=== PATIENT | female | born 1960 | race American Indian/Alaskan Native ===

== ENCOUNTER 2016-11-16 07:20 | Day surgery (SDC) | payer MEDICAID ==
[2016-10-23 12:25] VITALS: BMI 32.5
[2016-11-16] MEDS ORDERED: Midazolam 2 MG/2 ML VIAL ONE (08:58)
[2016-11-16] MEDS ORDERED: Propofol 10 mg/ml Inj (20 ML) ONE (08:58)
[2016-11-16] MEDS ORDERED: Dexamethasone 4 mg/1 ml ONE (09:01)
[2016-11-16] MEDS ORDERED: ceFAZolin IV 1 gm in Dextrose 1 GM/50 ML BAG IVPB ONE (09:01)
[2016-11-16] MEDS ORDERED: Bupivacaine HCl 0.5% PF (10 ml) Inj ONE ×2 (09:02→09:03)
[2016-11-16] MEDS ORDERED: Lidocaine 1% Inj (20ml) ONE (09:02)
[2016-11-16] MEDS ORDERED: Bacitracin Ointment 30 GM TUBE ONE (09:02)
[2016-11-16] MEDS ORDERED: Triamcinolone Acetonide 40 mg/mL Inj ONE (09:02)
[2016-11-16] MEDS ORDERED: Lactated Ringer's 1,000 ML IV ONE (09:10)
--- NOTE | 2016-11-16 10:48 | PCM.SURG1 ---
Surgeon's Initial Post Op Note - Surgeon's Notes Surgeon: Dr. Smith Complex Care Nurse: Dr. Tatum PGY-2, Dr. Treviño PGY-1 Type of Anesthesia: IV Sedation, Local Anesthesia Administered By: Jayne Mora Pre-Operative Diagnosis: right foot painful bunion Operative Findings: see dictation. 18mm 2.7 synthes screw. 16 cc 1:1 mix 1% lidocaine plain, 0.5%marcaine plain. 2-0,3-0,4-0 vicryl, 4-0 prolene Post-Operative Diagnosis: same Operation Performed: right foot bunionectomy Specimen/Specimens Removed: bone Estimated Blood Loss: EBL {In ML}: 2 Blood Products Given: N/A Drains Used: No Drains Post-Op Condition: Good Date of Surgery/Procedure: 11/16/16 Time of Surgery/Procedure: 09:30
[2016-11-16] MEDS ORDERED: Oxycodone/Acetaminophen 5/325 mg Tab PO PRN ×2 (10:49)
[2016-11-16] MEDS ORDERED: HYDROmorphone 0.5 mg/0.5 ml ISec IVP PRN (10:54)
[2016-11-16] MEDS ORDERED: Lactated Ringer's 1,000 ML IV SCH (11:00)
[2016-11-16 11:26] VITALS: BP 130/70; PULSE 66; RESP 18; TEMP 98; O2SAT 100
--- NOTE | 2016-11-16 12:54 | RAD ---
PROCEDURE: Right Foot Radiographs. HISTORY: s/p right foot surgery COMPARISON: None. FINDINGS: BONES: Patient is status post apparent bunionectomy at the right 1st metatarsal bone the facet with medial distal 1st metatarsal osteotomy appreciated and ostectomy transfixed by a solitary screw. Postop changes seen at the midfoot/forefoot medially with bandage obscuring fine bony and soft-tissue detail. No acute fracture or dislocation identified. A large plantar calcaneal spur is incidentally noted. JOINTS: Normal. SOFT TISSUES: As above. OTHER FINDINGS: None. IMPRESSION: Postop changes are identified at the 1st metatarsal status post bunionectomy.
--- NOTE | 2016-11-17 15:46 | OP ---
PROCEDURE DATE: 11/16/2016 PREOPERATIVE DIAGNOSIS: Right foot hallux valgus deformity. POSTOPERATIVE DIAGNOSIS: Right foot hallux valgus deformity. PROCEDURE: Chevron bunionectomy of right foot with screw fixation. SURGEON: Zane Smith DPM ACTIVITIES COORDINATOR: Kristi Tatum DPM, PGY-2, and Dr. Treviño, PGY-1. COLOR STRAINER: Leila Villarreal MD TYPE OF ANESTHESIA: IV sedation with local. INDICATIONS: The patient is a 56-year-old female with the above diagnoses. The patient has exhausted all conservative treatment at this time and requests surgical intervention. The patient's family consented after careful explanation of risks, benefits, complications, and alternatives of the surgical procedure. No guarantees were given or implied. The patient was brought into the operating room, placed on the operating room table in a supine position. A time-out was performed for identification of the correct patient and procedure. The patient received a total of 15 mL of 1:1 mixture of 1% lidocaine plain and 0.5% Marcaine plain in a Montiel block and a local block type fashion to the right first ray. Once local anesthesia was achieved, the right foot was then prepped and draped in a normal sterile manner. The tourniquet was then inflated to 250 mmHg at the level of the ankle and the procedure began. Attention was then directed to the dorsal aspect of the first metatarsal, right foot, when appropriately 6 cm linear longitudinal incision was made medial and parallel to the tendon of the extensor hallucis longus involving the contralateral deformity. The incision was then deepened to the subcutaneous tissues using sharp and blunt dissection. Care was taken to identify and retract all vital neurovascular structures. All bleeders were cauterized and ligated as necessary. Attention was then directed to the first interspace via the original incision and where the tendon of the extensor hallucis brevis was identified and tenotomized. The conjoint tendons of the adductor hallucis muscle was then identified and transected at its attachment to the base of the proximal phalanx. At this time, the lateral contractor present on the hallux was noted to be reduced. At this time, an inverted L-shaped capsulotomy was performed over the dorsal aspect of the first metatarsophalangeal joint. The periosteal and capsular structures were then carefully dissected free of the osseous attachments and reflected medially and laterally exposing the head of the first metatarsal and to the operative site and cross section from the area was sent to Pathology. Next, utilizing a sagittal bone saw, the dorsal and medial prominences were resected and passed from the operative field. All retractors were then smoothed down with a bone graft. Attention was then redirected to the medial aspect of the first metatarsal head where a through and through V-type osteotomy was created in the metaphyseal region of the bone utilizing an oscillating bone saw. The apex of the osteotomy pointed distally with the arm pointing proximal plantar and proximal dorsal. The dorsal arm was made longer to the accommodate internal fixation. Upon completion of the osteotomy, the capital fragment was distracted and fitted laterally into more correct position and impacted upon the first metatarsal shaft. At this time, 0.45 inch K-wire was driven from dorsal to plantar across the osteotomy site to serve as temporary fixation. Following sequential removal of the K-wire and following AO standard principles and techniques, a 2.7 18-mm cortical screw was inserted into their plates across the osteotomy site with excellent compression noted. Attention was then directed to the remaining medial bone, which was resected utilizing the oscillating bone saw intact from the operative site. Reduction of the deformity was assessed at the time and noted to be excellent. The periosteal and capsular structures was then re-approximated using 2-0 Vicryl. The surgical incision site was then copiously flushed with normal sterile saline. The subcutaneous tissue was then re-approximated using 3-0 Vicryl and the skin was then re-approximated using 4-0 Prolene. A postoperative block consisting of 10 mL of 0.5% Marcaine and 1 mL of Kenalog was injected in a local block fashion. The surgical site was then dressed with bacitracin, Adaptic, 4x4 gauze, Kerlix, Kari and Ezra. POSTOPERATIVE CONDITION: The patient tolerated the anesthesia and procedure well and was transferred to the recovery room. Her vitals signs were stable and neurovascular status intact to the right foot. The patient will remain partial weightbearing in the surgical shoe and will follow up with Dr. Smith in his office. Kristi Tatum DPM [facility] # [id number]
== END 2016-11-16 13:22 | disposition home or self-care (01) ==
LOC: C.SDS 07:20
PROVIDERS: ATTEND Podiatrist Foot & Ankle Surgery
DX: M20.11 Hallux valgus (acquired), right foot (principal); M21.611 Bunion of right foot; M20.21 Hallux rigidus, right foot
CPT/HCPCS: 28291; 73620; 88304; 88311; 97116; 97162; C1713; G8978; G8979; J0690; J2250; J2704; J3010; J7120

== ENCOUNTER 2017-12-13 10:28 | Inpatient (IN) | payer MEDICAID ==
[2017-12-05 09:28] VITALS: BMI 37.5
[2017-12-13 11:53] LABS: BLOOD UREA NITROGEN 13 mg/dL (7-17); CALCIUM 9.3 mg/dl (8.6-10.4); GFR AFRICAN-AMERICAN > 60; GFR NON-AFRICAN AMERICAN > 60
[2017-12-13] MEDS ORDERED: ceFAZolin IV 1 gm in Dextrose 2 GM/100 ML BAG IVPB ONE (13:13)
[2017-12-13] MEDS ORDERED: Midazolam 2 MG/2 ML VIAL ONE (13:32)
[2017-12-13] MEDS ORDERED: Propofol 10 mg/ml Inj (20 ML) ONE ×2 (13:32→14:17)
[2017-12-13] MEDS ORDERED: Rocuronium 10 mg/ml (10 ml) ONE (14:06)
[2017-12-13] MEDS ORDERED: Rocuronium 10 mg/ml (5 ml) ONE (15:24)
[2017-12-13] MEDS ORDERED: ePHEDrine 50 mg/ml Inj ONE (15:29)
[2017-12-13] MEDS ORDERED: HYDROmorphone 0.5 mg/0.5 ml ISec IVP PRN (16:09)
[2017-12-13] MEDS ORDERED: Neostigmine Methylsulfate 3mg/3ml Syringe IV ONE (16:21)
--- NOTE | 2017-12-13 16:47 | PCM.SURG1 ---
Surgeon's Initial Post Op Note - Surgeon's Notes Surgeon: Pablo Child Adolescent Psychiatrist: Kraig PGY4 Type of Anesthesia: General Endo Pre-Operative Diagnosis: Incisional hernia Operative Findings: incisional hernia, extensive adhesions, enterotomy Post-Operative Diagnosis: same Operation Performed: repair of incisional hernia with mesh, DONELL, repair of enterotomy Specimen/Specimens Removed: hernia sac Estimated Blood Loss: EBL {In ML}: 100 Blood Products Given: N/A Drains Used: Anibal Post-Op Condition: Good Date of Surgery/Procedure: 12/13/17 Time of Surgery/Procedure: 16:47
[2017-12-13] MEDS ORDERED: Sodium Chloride 0.9% 1,000 ML IV ONE (19:00)
[2017-12-13] MEDS: Sodium Chloride 0.9% 1,000 ML IV SCH (19:12)
[2017-12-13] MEDS: HYDROmorphone 0.5 mg/0.5 ml ISec IVP PRN (21:05)
[2017-12-14] MEDS: Sodium Chloride 0.9% 1,000 ML IV SCH ×3 (00:18→10:23)
[2017-12-14] MEDS: HYDROmorphone 0.5 mg/0.5 ml ISec IVP PRN ×6 (01:05→21:16)
[2017-12-14 07:32] LABS: BASO # 0.1 K/uL (0.0-0.2); BASO % 0.4 % (0.0-2.0); EOS % 0.1 % (0.0-4.0); HEMOGLOBIN 11.6 g/dL (11.0-16.0); LYMPH # 1.3 K/uL (1.0-4.3); LYMPH % 10.2 % (20.0-40.0); MEAN CELL VOLUME 80.7 fL (81.0-99.0); MEAN CORPUSCULAR HEMOGLOBIN 27.4 pg (27.0-31.0); MEAN PLATELET VOLUME 9.1 fL (7.2-11.7); MONO # 1.1 K/uL (0.0-0.8); MONO % 8.2 % (0.0-10.0); NEUT # 10.6 K/uL (1.8-7.0); NEUT % 81.1 % (50.0-75.0); RBC 4.24 Mil/uL (3.80-5.20); RED CELL DISTRIBUTION WIDTH 14.8 % (11.5-14.5)
[2017-12-14 07:39] LABS: WHITE BLOOD COUNT 13.1 K/uL (4.8-10.8)
[2017-12-14 08:04] VITALS: RESP 20; O2SAT 95
--- NOTE | 2017-12-14 08:04 | OP ---
Copied To: Joel Cornell DO Attending MD: Renea Shah MD PROCEDURE DATE: 12/13/2017 PREOPERATIVE DIAGNOSIS: Incisional hernia. POSTOPERATIVE DIAGNOSIS: Incisional hernia. PROCEDURE: Mesh repair of the incisional hernia. INDICATIONS: This is a 57-year-old female who has developed incisional hernia at the site of the pervious operation. This was symptomatic and repair hernia was indicated. DESCRIPTION OF PROCEDURE: The patient was brought to the OR and underwent general anesthesia with endotracheal intubation. The patient was positioned in supine and prepped and draped in the usual sterile fashion. Time-out was conducted verifying correct patient, procedure, site, and laterality. Antibiotics were administered prior to incision. A vertical midline incision incorporating the old scar was made. The incision was deepened to the fascia, and the hernia sac was identified and dissected free. The peritoneum of the sac was entered and extensive adhesions of the omentum and small bowel were encountered. After extensive dissection of lysis of adhesions, the bowel was freed from the peritoneum. Some enterotomies were encountered. These were closed primarily with a 3-0 Vicryl suture. The fascia was carefully palpated, and additional defects were encountered inferiorly near the umbilicus. Intervening fascial bridges were then cut to create single large defect. The adhesions to the underside of the abdominal wall were lysed and the fascia was assessed. Pieces of mesh 5 x7 inches were to the fascial edges and sutured in place with 0 Prolene and tacked to the abdominal wall. Hemostasis was checked. A closed suction drain was placed in the subcutaneous tissue. The skin was then closed with nilson. The patient tolerated the procedure well and brought to the PACU in stable condition. oJel Cornell DO Renea Shah MD
[2017-12-14 08:14] LABS: BLOOD UREA NITROGEN 11 mg/dL (7-17); GFR AFRICAN-AMERICAN > 60; GFR NON-AFRICAN AMERICAN > 60
--- NOTE | 2017-12-14 10:20 | CP.PCM.PN ---
Subjective - Date & Time of Evaluation Date of Evaluation: 12/14/17 Time of Evaluation: 10:16 - Subjective Subjective: Surgery: Dr. Shah Pt seen and examined. Resting comfortably in bed. Pain controlled. No F/C. No N/ V. +Flatus. No BM. Pt would like to eat. Objective - Vital Signs/Intake and Output Vital Signs (last 24 hours): Temp Pulse Resp BP Pulse Ox 99.1 F 99 H 20 118/80 95 12/14/17 07:00 12/14/17 07:00 12/14/17 07:00 12/14/17 07:00 12/14/17 07:00 Intake and Output: 12/14/17 12/14/17 06:59 18:59 Intake Total 590 Output Total 20 Balance 570 - Medications Medications: Current Medications Bupropion HCl (Wellbutrin Sr 150 Mg) 150 mg PO DAILY STEPHANIE Clonazepam (Klonopin) 1 mg PO HS [facility] Cyclobenzaprine HCl (Flexeril) 5 mg PO DAILY PRN PRN Reason: Pain, moderate (4-7) Enoxaparin Sodium (Lovenox) 40 mg SC DAILY [facility] Ergocalciferol (Drisdol 50,000 Intl Units Cap) 1 cap PO QWK [facility] Hydrochlorothiazide (Hydrodiuril) 25 mg PO DAILY [facility] Hydromorphone HCl (Dilaudid) 0.5 mg IVP Q4H PRN PRN Reason: Pain, moderate (4-7) Last Admin: 12/14/17 05:23 Dose: 0.5 mg Sodium Chloride (Sodium Chloride 0.9%) 1,000 mls @ 140 mls/hr IV .Q7H9M [facility] Last Admin: 12/14/17 02:35 Dose: 140 mls/hr Cefazolin Sodium 500 mg/ (Sodium Chloride) 50 mls @ 100 mls/hr IVPB Q8H STEPHANIE PRN Reason: Protocol Last Admin: 12/14/17 05:29 Dose: 100 mls/hr Lisinopril (Zestril) 40 mg PO DAILY [facility] Olanzapine (Zyprexa) 5 mg PO DAILY [facility] Ondansetron HCl (Zofran Inj) 4 mg IVP Q6 PRN PRN Reason: Nausea/Vomiting Rosuvastatin Calcium (Crestor) 5 mg PO HS [facility] Sennosides (Senokot Tab) 17.2 mg PO HS STEPHANIE - Labs Labs: 12/14/17 07:19 12/14/17 07:19 - Constitutional Appears: Non-toxic, No Acute Distress - Head Exam Head Exam: ATRAUMATIC, NORMOCEPHALIC - Eye Exam Eye Exam: EOMI - ENT Exam ENT Exam: Mucous Membranes Moist - Neck Exam Neck Exam: Full ROM - Respiratory Exam Respiratory Exam: NORMAL BREATHING PATTERN. absent: Accessory Muscle Use, Respiratory Distress - GI/Abdominal Exam GI & Abdominal Exam: Soft. absent: Distended, Firm, Guarding, Rigid, Tenderness Additional comments: midline incision with dressing in place, serosang output from ajit - Extremities Exam Extremities Exam: absent: Calf Tenderness, Pedal Edema - Neurological Exam Neurological Exam: Alert, Awake, Oriented x3 Assessment and Plan - Assessment and Plan (Free Text) Assessment: 57F POD#1 incisional hernia repair with mesh -will start CLD and ADAT -Ajit output: 20cc/12hr, continue to monitor -Encourage OOB, ambulation, and IS use -DVT ppx -d/w attending Zemaitis PGY4
[2017-12-14] MEDS: buPROPion SR 150 MG TABLET PO SCH (10:22)
[2017-12-14] MEDS: Enoxaparin 40 mg Syringe SC SCH (10:23)
[2017-12-14] MEDS: Ergocalciferol 50,000 Intl Units Cap PO SCH ×2 (10:23→11:59)
[2017-12-14] MEDS ORDERED: Sodium Chloride 0.9% 1,000 ML IV SCH (19:45)
[2017-12-15 01:03] VITALS: PULSE 94
[2017-12-15] MEDS: HYDROmorphone 0.5 mg/0.5 ml ISec IVP PRN ×2 (05:23→09:23)
[2017-12-15 07:40] LABS: HEMOGLOBIN 12.2 g/dL (11.0-16.0); MEAN CELL VOLUME 81.1 fL (81.0-99.0); MEAN CORPUSCULAR HEMOGLOBIN 27.4 pg (27.0-31.0); MEAN CORPUSCULAR HGB CONC 33.7 g/dL (33.0-37.0); MEAN PLATELET VOLUME 9.3 fL (7.2-11.7); RBC 4.46 Mil/uL (3.80-5.20); RED CELL DISTRIBUTION WIDTH 14.8 % (11.5-14.5); WHITE BLOOD COUNT 14.2 K/uL (4.8-10.8)
--- NOTE | 2017-12-15 08:02 | CP.PCM.DIS ---
Provider - Provider Date of Admission: 12/13/17 16:48 Attending physician: Renea Shah MD Time Spent in preparation of Discharge (in minutes): 30 Diagnosis - Discharge Diagnosis (1) Incisional hernia Status: Acute Hospital Course - Lab Results Lab Results: Most Recent Lab Values WBC 13.1 K/uL (4.8-10.8) H D 12/14/17 07:19 RBC 4.24 Mil/uL (3.80-5.20) 12/14/17 07:19 Hgb 11.6 g/dL (11.0-16.0) 12/14/17 07:19 Hct 34.2 % (34.0-47.0) 12/14/17 07:19 MCV 80.7 fL (81.0-99.0) L 12/14/17 07:19 MCH 27.4 pg (27.0-31.0) 12/14/17 07:19 MCHC 34.0 g/dL (33.0-37.0) 12/14/17 07:19 RDW 14.8 % (11.5-14.5) H 12/14/17 07:19 Plt Count 195 K/uL (130-400) 12/14/17 07:19 MPV 9.1 fL (7.2-11.7) 12/14/17 07:19 Neut % (Auto) 81.1 % (50.0-75.0) H 12/14/17 07:19 Lymph % (Auto) 10.2 % (20.0-40.0) L 12/14/17 07:19 Whitman % (Auto) 8.2 % (0.0-10.0) 12/14/17 07:19 Eos % (Auto) 0.1 % (0.0-4.0) 12/14/17 07:19 Baso % (Auto) 0.4 % (0.0-2.0) 12/14/17 07:19 Neut # (Auto) 10.6 K/uL (1.8-7.0) H 12/14/17 07:19 Lymph # (Auto) 1.3 K/uL (1.0-4.3) 12/14/17 07:19 Whitman # (Auto) 1.1 K/uL (0.0-0.8) H 12/14/17 07:19 Eos # (Auto) 0.0 K/uL (0.0-0.7) 12/14/17 07:19 Baso # (Auto) 0.1 K/uL (0.0-0.2) 12/14/17 07:19 Sodium 143 mmol/L (132-148) 12/14/17 07:19 Potassium 3.5 mmol/L (3.6-5.2) L 12/14/17 07:19 Chloride 103 mmol/L (98-107) 12/14/17 07:19 Carbon Dioxide 27 mmol/L (22-30) 12/14/17 07:19 Anion Gap 17 (10-20) 12/14/17 07:19 BUN 11 mg/dL (7-17) 12/14/17 07:19 Creatinine 0.7 mg/dL (0.7-1.2) 12/14/17 07:19 Est GFR ( Amer) > 60 12/14/17 07:19 Est GFR (Non-Af Amer) > 60 12/14/17 07:19 Random Glucose 111 mg/dL (65-105) H 12/14/17 07:19 Calcium 8.0 mg/dl (8.6-10.4) L 12/14/17 07:19 - Hospital Course Hospital Course: 57F presented from [facility] for elective incisional hernia repair. Case was complicated by extensive adhesions. Post-op pt was admitted overnight for observation. She is doing well. Pain controlled. Tolerated diet. Mild nausea, no vomiting. No flatus/BM yet, but is ambulating without difficulty. Pt is clear for D/C from surgical standpoint. Discharge Exam - Head Exam Head Exam: ATRAUMATIC, NORMOCEPHALIC - Eye Exam Eye Exam: EOMI - ENT Exam ENT Exam: Mucous Membranes Moist - Neck Exam Neck exam: Full Rom - Respiratory Exam Respiratory Exam: NORMAL BREATHING PATTERN. absent: Accessory Muscle Use, Respiratory Distress - GI/Abdominal Exam GI & Abdominal Exam: Soft. absent: Distended, Firm, Guarding, Rebound, Rigid, Tenderness Additional comments: midline incision w. nlison, C/D/I - Neurological Exam Neurological exam: Alert, Oriented x3 - Psychiatric Exam Psychiatric exam: Normal Affect, Normal Mood Discharge Plan - Discharge Medications Prescriptions: Ketorolac Tromethamine [Toradol] 10 mg PO Q6 #20 tab - Follow Up Plan Condition: GOOD Disposition: HOME/ ROUTINE Patient education suggested?: Yes Instructions: Abdominal Hernia (DC), Open Herniorrhaphy (DC) Additional Instructions: Follow up oc Shah in 2 weeks No heavy lifting >15-20lbs for 4 weeks Diet as tolerated Wear abdominal binder until seen in office Toradol and Tylenol for pain Referrals: Renea Shah MD [Staff Provider] -
[2017-12-15 08:15] LABS: BLOOD UREA NITROGEN 8 mg/dL (7-17); CALCIUM 7.9 mg/dl (8.6-10.4); GFR AFRICAN-AMERICAN > 60; GFR NON-AFRICAN AMERICAN > 60
[2017-12-15 08:20] VITALS: BP 113/76; TEMP 98.7
[2017-12-15] MEDS: Enoxaparin 40 mg Syringe SC SCH (09:24)
[2017-12-15] MEDS: Ergocalciferol 50,000 Intl Units Cap PO SCH (09:24)
[2017-12-15] MEDS: buPROPion SR 150 MG TABLET PO SCH (09:25)
[2017-12-15] MEDS ORDERED: Potassium Chloride 20 mEq ER Tab PO SCH (10:00)
== END 2017-12-15 13:00 | disposition home or self-care (01) | DRG 151 ==
LOC: C.SDS 10:28 → C.9E 16:48 → C.9S 17:18 → C.5S 19:07
PROVIDERS: ADMIT Specialist; ATTEND Specialist
PROC: 0DNU0ZZ Release Omentum, Open Approach (ICD-10-PCS; 2017-12-13)
PROC: 0WUF0JZ Supplement Abdominal Wall with Synthetic Substitute, Open Approach (ICD-10-PCS; principal; 2017-12-13 13:00)
DX: K43.2 Incisional hernia without obstruction or gangrene (principal); K66.0 Peritoneal adhesions (postprocedural) (postinfection)

== ENCOUNTER 2017-12-16 21:29 | Inpatient (IN) | payer MEDICAID ==
[2017-12-16 21:29] VITALS: BMI 37.5
[2017-12-16] MEDS ORDERED: Sodium Chloride 0.9% 1,000 ML IV ONE (22:30)
--- NOTE | 2017-12-16 22:39 | C.PDOC ---
History Of Present Illness 57 y/o female presents to the emergency department complaining of abdominal pain and distention. Patient reports she is s/p hernia repair, she has been passing flatus and has had some diarrhea. Denies any fever or chills. Time Seen by Provider: 12/16/17 22:39 Chief Complaint (Nursing): Abdominal Pain History Per: Patient History/Exam Limitations: no limitations Onset/Duration Of Symptoms: Days Current Symptoms Are (Timing): Still Present Severity: Moderate Pain Scale Rating Of: 4 Radiation Of Pain To:: None Associated Symptoms: Diarrhea, Other (flatulence). denies: Fever, Chills Exacerbating Factors: None Alleviating Factors: None Last Bowel Movement: Today Recent travel outside of the [place]: No Additional History Per: Patient Abnormal Vaginal Bleeding: No Past Medical History Reviewed: Historical Data, Nursing Documentation, Vital Signs Vital Signs: Last Vital Signs Temp 99.3 F 12/17/17 02:39 Pulse 92 H 12/17/17 02:39 Resp 18 12/17/17 02:39 BP 117/77 12/17/17 02:39 Pulse Ox 98 12/17/17 02:39 - Medical History PMH: Anxiety, Colonic Polyps, Depression, HTN, Hypercholesterolemia Denies: Chronic Kidney Disease Surgical History: Hernia Repair - [facility] Procedures REPAIR ABDOMINAL WALL, OPEN APPROACH (09/08/15) RESECTION OF RIGHT LARGE INTESTINE, OPEN APPROACH (09/08/15) Family History: States: No Known Family Hx - Social History Hx Tobacco Use: No Hx Alcohol Use: No Hx Substance Use: No - Immunization History Hx Tetanus Toxoid Vaccination: No Hx Influenza Vaccination: Yes Hx Pneumococcal Vaccination: No Review Of Systems Constitutional: Negative for: Fever, Chills Eyes: Negative for: Vision Change ENT: Negative for: Throat Pain Cardiovascular: Negative for: Chest Pain, Palpitations Respiratory: Negative for: Cough, Shortness of Breath Gastrointestinal: Positive for: Abdominal Pain, Diarrhea, Other (abdominal distention) Musculoskeletal: Negative for: Back Pain Skin: Negative for: Rash Neurological: Negative for: Weakness, Numbness Psych: Negative for: Anxiety Physical Exam - Physical Exam Appears: Non-toxic Skin: Warm, Dry Head: Normacephalic Eye(s): bilateral: Normal Inspection Oral Mucosa: Moist Neck: Trachea Midline, Supple Chest: Symmetrical, No Tenderness Cardiovascular: Rhythm Regular Respiratory: No Rales, No Rhonchi, No Wheezing Gastrointestinal/Abdominal: Soft, No Tenderness, Distention, Other (tympanic percussion; incision site clean and dry) Back: Normal Inspection Extremity: Normal ROM Extremity: Bilateral: Atraumatic Pulses: Left Dorsalis Pedis: Normal, Right Dorsalis Pedis: Normal Neurological/Psych: Oriented x3 Gait: Steady ED Course And Treatment - Laboratory Results Result Diagrams: 12/16/17 22:41 12/16/17 22:41 ECG: Interpreted By Me, Viewed By Me ECG Rhythm: Sinus Rhythm (83), Nonspecific Changes O2 Sat by Pulse Oximetry: 96 (RA) Pulse Ox Interpretation: Normal Progress Note: Blood work, EKG, chest x-ray, and urinalysis ordered. Pepcid, Zofran, and IV fluids administered. pt seen and examined by the sr vice president. aware of ct findings Disposition Discussed With : Renea Shah Comment: accepted the pt on her service and took voer the care at 2:55 AM Doctor Will See Patient In The: ED Counseled Patient/Family Regarding: Studies Performed, Diagnosis - Disposition Disposition: HOSPITALIZED Disposition Time: 22:39 Condition: FAIR Forms: [employer] (Telugu) - POA Present On Arrival: None - Clinical Impression Clinical Impression: Abdominal pain, Diarrhea, SBO (small bowel obstruction) - Scribe Statement The provider has reviewed the documentation as recorded by the Ja Sultana Provider Attestation: All medical record entries made by the Raeibsean were at my direction and personally dictated by me. I have reviewed the chart and agree that the record accurately reflects my personal performance of the history, physical exam, medical decision making, and the department course for this patient. I have also personally directed, reviewed, and agree with the discharge instructions and disposition. Decision To Admit - Pt Status Changed To: Hospital Disposition Of: Inpatient - Admit Certification Admit to Inpatient:: After my assessment, the patient will require hospitalization for at least two midnights. This is because of the severity of symptoms shown, intensity of services needed, and/or the medical risk in this patient being treated as an outpatient. - InPatient: Physician Admission Certification:: After my assessment, the patient will require hospitalization for at least two midnights. This is because of the severity of symptoms shown, intensity of services needed, and/or the medical risk in this patient being treated as an outpatient. - . Bed Request Type: Regular Patient Diagnosis: Abdominal pain, Diarrhea, SBO (small bowel obstruction)
[2017-12-16 22:44] LABS: VENOUS BLOOD GAS BASE EXCESS 5.9 mmol/L (0.0-2.0); VENOUS BLOOD GAS PCO2 39 mmHg (40-60); VENOUS BLOOD GAS PO2 110 mm/Hg (30-55); VENOUS BLOOD PH 7.49 (7.32-7.43)
[2017-12-16 22:46] LABS: BASO % 0.3 % (0.0-2.0); EOS # 0.2 K/uL (0.0-0.7); LYMPH # 1.3 K/uL (1.0-4.3); MEAN CELL VOLUME 80.3 fL (81.0-99.0); MONO # 0.9 K/uL (0.0-0.8); RED CELL DISTRIBUTION WIDTH 14.6 % (11.5-14.5)
[2017-12-16 22:50] LABS: EOS % 2.7 % (0.0-4.0); HEMOGLOBIN 11.8 g/dL (11.0-16.0); LYMPH % 20.7 % (20.0-40.0); MEAN CORPUSCULAR HEMOGLOBIN 27.4 pg (27.0-31.0); MEAN CORPUSCULAR HGB CONC 34.1 g/dL (33.0-37.0); MEAN PLATELET VOLUME 9.3 fL (7.2-11.7); NEUT % 62.3 % (50.0-75.0); NRBC % 0.1 % (0.0-2.0); RBC 4.32 Mil/uL (3.80-5.20)
[2017-12-16 22:52] LABS: WHITE BLOOD COUNT 6.4 K/uL (4.8-10.8)
[2017-12-16 22:55] LABS: INR 1.1; PROTHROMBIN TIME 12.3 SECONDS (9.7-12.2)
[2017-12-16 23:01] LABS: ALT/SGPT 19 U/L (9-52); AST/SGOT 28 U/L (14-36); BLOOD UREA NITROGEN 10 mg/dL (7-17); CALCIUM 8.9 mg/dl (8.6-10.4); GFR AFRICAN-AMERICAN > 60; GFR NON-AFRICAN AMERICAN > 60
[2017-12-17] MEDS ORDERED: Iodixanol 320 MG/ML 100 ML BOTTLE IV ONE (01:03)
--- NOTE | 2017-12-17 03:41 | CP.PCM.HP ---
History of Present Illness - History of Present Illness History of Present Illness: 57F w/ PMHx of HTN, depression, anxiety, incisional hernia, presents to [facility] ED with complaints of abdominal pain. Patient is s/p incisional hernia repain with mesh placement POD 4.Patient states she has not been able to tolerate food since surgery. Reports having nausea and several bouts of non bloody emesis after consuming food. Patient also reports several bouts of diarrhea. At time of examination patient complained of abdominal distension. Currently denies headache/dizziness, chest pain/SOB, dysuria. PMH: as stated above PSHx: R hemicolectomy, umbilical hernia repair, incisional hernia repair All: NKDA Present on Admission - Present on Admission Any Indicators Present on Admission: No Review of Systems - Review of Systems Review of Systems: 12 pt ROS unremarkabale except as stated in HPI Past Patient History - Infectious Disease Hx of Infectious Diseases: None - Past Medical History & Family History Past Medical History?: Yes - Past Social History Smoking Status: Never Smoked - CARDIAC Hx Hypercholesterolemia: Yes Hx Hypertension: Yes - PULMONARY Hx Respiratory Disorders: No - NEUROLOGICAL Hx Neurological Disorder: No - HEENT Hx HEENT Problems: No - RENAL Hx Chronic Kidney Disease: No - ENDOCRINE/METABOLIC Hx Endocrine Disorders: No - HEMATOLOGICAL/ONCOLOGICAL Hx Blood Disorders: No - INTEGUMENTARY Hx Dermatological Problems: No - MUSCULOSKELETAL/RHEUMATOLOGICAL Hx Musculoskeletal Disorders: Yes Hx Back Pain: Yes Hx Falls: No Other/Comment: HX:BUNION RIGHT FOOT (& left) - GASTROINTESTINAL Hx Gastrointestinal Disorders: Yes Hx Bowel Surgery: Yes (HX: COLECTOMY) - GENITOURINARY/GYNECOLOGICAL Hx Genitourinary Disorders: No - PSYCHIATRIC Hx Anxiety: Yes Hx Depression: Yes Hx Substance Use: No - SURGICAL HISTORY Hx Surgeries: Yes Hx Section: Yes Hx Herniorrhaphy: Yes - ANESTHESIA Hx Anesthesia: Yes Hx Anesthesia Reactions: No Hx Malignant Hyperthermia: No Meds Allergies/Adverse Reactions: Allergies Allergy/AdvReac Type Severity Reaction Status Date / Time No Known Allergies Allergy Verified 12/16/17 21:38 Physical Exam - Constitutional Appears: Non-toxic, No Acute Distress - Head Exam Head Exam: NORMOCEPHALIC - Eye Exam Eye Exam: EOMI, Normal appearance - ENT Exam ENT Exam: Mucous Membranes Moist - Respiratory Exam Respiratory Exam: NORMAL BREATHING PATTERN - Cardiovascular Exam Cardiovascular Exam: +S1, +S2 - GI/Abdominal Exam GI & Abdominal Exam: Distended, Soft, Tenderness. absent: Firm, Guarding, Hernia, Rebound, Rigid Additional comments: mild tenderness along incision site Incision site is c/d/i- No purulent drainage or erythematous changes noted - Neurological Exam Neurological exam: Alert, Oriented x3 - Psychiatric Exam Psychiatric exam: Normal Mood - Skin Skin Exam: Dry, Intact, Warm Results - Vital Signs Recent Vital Signs: Last Vital Signs Temp 99.3 F 12/17/17 02:39 Pulse 92 H 12/17/17 02:39 Resp 18 12/17/17 02:39 BP 117/77 12/17/17 02:39 Pulse Ox 96 12/17/17 02:59 - Labs Result Diagrams: 12/20/17 07:52 12/20/17 07:52 Labs: Laboratory Results - last 24 hr 12/16/17 12/16/17 12/16/17 22:40 22:41 22:41 WBC 6.4 D RBC 4.32 Hgb 11.8 Hct 34.7 MCV 80.3 L MCH 27.4 MCHC 34.1 RDW 14.6 H Plt Count 239 MPV 9.3 Neut % (Auto) 62.3 Lymph % (Auto) 20.7 [place] % (Auto) 14.0 H Eos % (Auto) 2.7 Baso % (Auto) 0.3 Neut # (Auto) 4.0 Lymph # (Auto) 1.3 [place] # (Auto) 0.9 H Eos # (Auto) 0.2 Baso # (Auto) 0.0 PT INR APTT pO2 110 H VBG pH 7.49 H VBG pCO2 39 L VBG HCO3 29.6 VBG Total CO2 30.9 H VBG O2 Sat (Calc) 99.2 H VBG Base Excess 5.9 H VBG Potassium 2.9 L Sodium 135.0 136 Chloride 101.0 94 L Glucose 106 H Lactate 1.5 Potassium 3.6 Carbon Dioxide 29 Anion Gap 16 BUN 10 Creatinine 0.8 Est GFR ( Amer) > 60 Est GFR (Non-Af Amer) > 60 Random Glucose 107 H Calcium 8.9 Total Bilirubin 1.1 AST 28 ALT 19 Alkaline Phosphatase 67 Total Protein 8.0 Albumin 4.0 Globulin 4.0 H Albumin/Globulin Ratio 1.0 Lipase Venous Blood Potassium 2.9 L 12/16/17 12/17/17 22:41 00:20 WBC RBC Hgb Hct MCV MCH MCHC RDW Plt Count MPV Neut % (Auto) Lymph % (Auto) [place] % (Auto) Eos % (Auto) Baso % (Auto) Neut # (Auto) Lymph # (Auto) [place] # (Auto) Eos # (Auto) Baso # (Auto) PT 12.3 H INR 1.1 APTT 24 pO2 VBG pH VBG pCO2 VBG HCO3 VBG Total CO2 VBG O2 Sat (Calc) VBG Base Excess VBG Potassium Sodium Chloride Glucose Lactate Potassium Carbon Dioxide Anion Gap BUN Creatinine Est GFR ( Amer) Est GFR (Non-Af Amer) Random Glucose Calcium Total Bilirubin AST ALT Alkaline Phosphatase Total Protein Albumin Globulin Albumin/Globulin Ratio Lipase 35 Venous Blood Potassium Assessment & Plan - Assessment and Plan (Free Text) Assessment: 57F w/ SBO Plan: NPO IVF NGT if abd distension does not improve or pt nauseous/vomits Anti-emetics prn Analgesic prn Encourage ambulation DVT ppx Further recs per Dr. Pablo Roche PGY3
[2017-12-17] MEDS: HYDROmorphone 0.5 mg/0.5 ml ISec IVP PRN ×2 (05:15→14:23)
[2017-12-17] MEDS: Lactated Ringer's 1,000 ML IV SCH ×5 (05:16→23:00)
[2017-12-17 08:20] VITALS: RESP 20
--- NOTE | 2017-12-17 09:32 | CT ---
Date of service: 12/17/2017 PROCEDURE: CT Abdomen and Pelvis with intravenous contrast HISTORY: s/p surgery, abdominal pain, hernia repair COMPARISON: None. TECHNIQUE: Multiple contiguous axial images were performed through the abdomen and pelvis with the use intravenous contrast. Subsequently, sagittal and coronal reformatted images were obtained. Radiation dose: Total exam DLP = 1068 mGy-cm. This CT exam was performed using one or more of the following dose reduction techniques: Automated exposure control, adjustment of the mA and/or kV according to patient size, and/or use of iterative reconstruction technique. FINDINGS: LOWER THORAX: Bibasilar subsegmental atelectasis. LIVER: Unremarkable. No gross lesion or ductal dilatation. GALLBLADDER AND BILE DUCTS: Unremarkable. PANCREAS: Unremarkable. No gross lesion or ductal dilatation. SPLEEN: Unremarkable. ADRENALS: Unremarkable. No mass. KIDNEYS AND URETERS: Unremarkable. No hydronephrosis. No solid mass. VASCULATURE: Unremarkable. No aortic aneurysm. BOWEL: High-grade small-bowel obstruction with a transition point along the anterior abdominal wall deep to the umbilicus. Fluid throughout the colon suggesting a diarrheal state possibly superimposed separate process from the bowel obstruction. Postsurgical changes in the bowel. APPENDIX: No findings to suggest acute appendicitis. PERITONEUM: Small amount of free fluid in the pelvis. LYMPH NODES: Unremarkable. No enlarged lymph nodes. BLADDER: Unremarkable. REPRODUCTIVE: Unremarkable. BONES: Degenerative changes in the spine. OTHER FINDINGS: Skin nilson in the periumbilical region. Trace stranding associated with the prior incision. IMPRESSION: High-grade small-bowel obstruction with a transition point along the anterior abdominal wall deep to the umbilicus. Postsurgical changes in the bowel. Clinical correlation. Fluid throughout the colon suggesting a diarrheal state and possibly superimposed and/or separate process from the bowel obstruction. Clinical correlation. These findings were preliminarily reported at 2:14 a.m. on 12/17/[address] Osmar Sheldon from [facility].
--- NOTE | 2017-12-17 10:28 | RAD ---
Chest x-ray single frontal view History: Postoperative fever. Comparison: 05/17/2016 Findings: Small left pleural effusion with adjacent left basilar consolidation which may represent underlying infiltrate. Venous congestion. Bilateral hilar prominence. Tortuous ectatic aorta. Mild cardiomegaly. Degenerative changes in the spine and shoulders. Impression: Small left pleural effusion with adjacent left basilar consolidation which may represent underlying infiltrate. Venous congestion. Bilateral hilar prominence. Tortuous ectatic aorta. Mild cardiomegaly. Degenerative changes in the spine and shoulders.
[2017-12-17] MEDS: Enoxaparin 100 mg Syringe SC SCH ×2 (10:57→21:46)
[2017-12-18] MEDS: Lactated Ringer's 1,000 ML IV SCH ×4 (03:00→14:42)
[2017-12-18] MEDS: HYDROmorphone 0.5 mg/0.5 ml ISec IVP PRN ×3 (06:51→20:12)
[2017-12-18 08:15] LABS: BASO % 0.4 % (0.0-2.0); EOS # 0.3 K/uL (0.0-0.7); EOS % 3.8 % (0.0-4.0); HEMOGLOBIN 10.7 g/dL (11.0-16.0); LYMPH # 1.6 K/uL (1.0-4.3); LYMPH % 22.4 % (20.0-40.0); MEAN CELL VOLUME 80.9 fL (81.0-99.0); MEAN CORPUSCULAR HEMOGLOBIN 27.8 pg (27.0-31.0); MEAN CORPUSCULAR HGB CONC 34.4 g/dL (33.0-37.0); MEAN PLATELET VOLUME 8.5 fL (7.2-11.7); MONO # 0.8 K/uL (0.0-0.8); MONO % 12.1 % (0.0-10.0); NEUT # 4.3 K/uL (1.8-7.0); NEUT % 61.3 % (50.0-75.0); NRBC % 0.1 % (0.0-2.0); RBC 3.84 Mil/uL (3.80-5.20); RED CELL DISTRIBUTION WIDTH 14.5 % (11.5-14.5)
[2017-12-18 08:48] LABS: BLOOD UREA NITROGEN 8 mg/dL (7-17); CALCIUM 8.1 mg/dl (8.6-10.4); GFR AFRICAN-AMERICAN > 60; GFR NON-AFRICAN AMERICAN > 60
[2017-12-18] MEDS: Enoxaparin 100 mg Syringe SC SCH ×2 (09:32→21:55)
--- NOTE | 2017-12-18 12:31 | CARD ---
APPROVED REPORT Date of service: 12/17/2017 EKG Measurement Heart [id number] <Conclusion> Normal sinus rhythm Normal ECG
[2017-12-18] MEDS ORDERED: Potassium Chloride 20 mEq ER Tab PO STA (12:38)
--- NOTE | 2017-12-18 18:22 | CP.PCM.PN ---
Subjective - Date & Time of Evaluation Date of Evaluation: 12/18/17 Time of Evaluation: 14:00 - Subjective Subjective: General Surgery Progress Note for Dr. Shah Patient was seen and examined today at bedside in no acute distress. Nurse reports no overnight events. Patient admits to BM x5 but no flatus. Complains of bloating, lightheadedness during exertion. Denies CP, SOB, n/v, f/c. Objective - Vital Signs/Intake and Output Vital Signs (last 24 hours): Temp Pulse Resp BP Pulse Ox 98.7 F 89 20 130/75 99 12/18/17 09:32 12/18/17 09:30 12/18/17 07:00 12/18/17 09:30 12/18/17 07:00 Intake and Output: 12/18/17 12/18/17 06:59 18:59 Intake Total 1000 1000 Output Total 2 Balance 1000 998 - Medications Medications: Current Medications Acetaminophen (Tylenol 325mg Tab) 650 mg PO Q6 PRN PRN Reason: Fever >100.4 F Last Admin: 12/18/17 16:41 Dose: 650 mg Enoxaparin Sodium (Lovenox) 100 mg SC Q12 [facility] Last Admin: 12/18/17 09:32 Dose: 100 mg Hydromorphone HCl (Dilaudid) 0.5 mg IVP Q6H PRN PRN Reason: Pain, moderate (4-7) Last Admin: 12/18/17 12:54 Dose: 0.5 mg Potassium Chloride/Dextrose/Sod Cl (Potassium Chl 40 Meq In D5-1/2ns) 1,000 mls @ 100 mls/hr IV .Q10H [facility] Lisinopril (Zestril) 40 mg PO DAILY [facility] Last Admin: 12/18/17 09:32 Dose: 40 mg Ondansetron HCl (Zofran Inj) 4 mg IVP ONCE PRN PRN Reason: nausea/vomiting - Labs Labs: 12/18/17 08:02 12/18/17 08:02 PT 12.3 SECONDS (9.7-12.2) H 12/16/17 22:41 INR 1.1 12/16/17 22:41 APTT 24 SECONDS (21-34) 12/16/17 22:41 - Constitutional Appears: Non-toxic, No Acute Distress - Head Exam Head Exam: ATRAUMATIC, NORMOCEPHALIC - Eye Exam Eye Exam: EOMI, Normal appearance - ENT Exam ENT Exam: Mucous Membranes Moist, Normal Exam - Respiratory Exam Respiratory Exam: NORMAL BREATHING PATTERN. absent: Decreased Breath Sounds, Stridor - Cardiovascular Exam Cardiovascular Exam: +S1, +S2 - GI/Abdominal Exam GI & Abdominal Exam: Soft. absent: Guarding, Rigid, Tenderness Additional comments: abdominal binder in place - Neurological Exam Neurological Exam: Alert, Awake, Oriented x3 - Psychiatric Exam Psychiatric exam: Normal Affect, Normal Mood - Skin Additional comments: incision site c/d/i Assessment and Plan - Assessment and Plan (Free Text) Assessment: 57yoF with SBO Plan: - advanced to CLD, tolerating well, ADAT - monitor temps, Tylenol ordered prn - replete electrolytes as necessary - lower IVF rate to 100mls/hr - anti-emetics - encouraged OOB ambulation - DVT ppx in place - further recs per Dr. Pablo Vasquez PGY1
--- NOTE | 2017-12-18 18:29 | RAD ---
Date of service: 12/18/2017 PROCEDURE: Radiographs of the chest and abdomen (obstructive series) HISTORY: sbo, postop COMPARISON: No prior. TECHNIQUE: AP radiograph of the chest, with upright and supine radiographs of the abdomen. FINDINGS: CHEST: Lungs: The lungs are clear Cardiovascular: Normal size heart. No pulmonary vascular congestion. Pleura: No pleural fluid. No pneumothorax. Other findings: None. ABDOMEN AND PELVIS: Bowel: There is moderate dilatation of gas-filled small bowel loops. There is paucity of gas in the rectum. Free air: None. Bones: Unremarkable. Other findings: None. IMPRESSION: Persistent moderate dilatation gas-filled small bowel loops with paucity of gas in the rectum. Findings could be related to small bowel obstruction or postop ileus.
[2017-12-18] MEDS: Potassium Chl 40 mEq in D5-1/2 1,000 ML IV SCH (18:36)
[2017-12-19] MEDS: HYDROmorphone 0.5 mg/0.5 ml ISec IVP PRN ×2 (03:37→13:50)
[2017-12-19] MEDS: Potassium Chl 40 mEq in D5-1/2 1,000 ML IV SCH ×3 (03:43→20:00)
[2017-12-19 07:29] LABS: BASO % 0.2 % (0.0-2.0); EOS # 0.1 K/uL (0.0-0.7); EOS % 1.4 % (0.0-4.0); HEMOGLOBIN 10.9 g/dL (11.0-16.0); LYMPH # 1.4 K/uL (1.0-4.3); MEAN CELL VOLUME 81.1 fL (81.0-99.0); MEAN CORPUSCULAR HEMOGLOBIN 27.6 pg (27.0-31.0); MEAN PLATELET VOLUME 8.5 fL (7.2-11.7); MONO # 0.9 K/uL (0.0-0.8); MONO % 10.8 % (0.0-10.0); NEUT # 5.9 K/uL (1.8-7.0); NEUT % 70.6 % (50.0-75.0); NRBC % 0.2 % (0.0-2.0); RBC 3.96 Mil/uL (3.80-5.20); RED CELL DISTRIBUTION WIDTH 14.6 % (11.5-14.5); WHITE BLOOD COUNT 8.3 K/uL (4.8-10.8)
[2017-12-19 07:39] LABS: BLOOD UREA NITROGEN 4 mg/dL (7-17); CALCIUM 8.4 mg/dl (8.6-10.4); GFR AFRICAN-AMERICAN > 60; GFR NON-AFRICAN AMERICAN > 60
--- NOTE | 2017-12-19 08:21 | CP.PCM.PN ---
Subjective - Date & Time of Evaluation Date of Evaluation: 12/19/17 Time of Evaluation: 06:50 - Subjective Subjective: Generla surgery progress note for Dr. Shah Patient seen and examined this am at bedside. no acute events overnight per nursing. Patient endorses mild incisional pain but no abdominal pain. She otherwise denies f/c/n/v and has been tolerating her diet well. endorses flatus but no BM. Objective - Vital Signs/Intake and Output Vital Signs (last 24 hours): Temp Pulse Resp BP Pulse Ox 98.7 F 96 H 20 110/73 96 12/18/17 23:50 12/18/17 23:50 12/18/17 23:50 12/18/17 23:50 12/18/17 23:50 Intake and Output: 12/19/17 12/19/17 06:59 18:59 Intake Total 1225 800 Balance 1225 800 - Medications Medications: Current Medications Acetaminophen (Tylenol 325mg Tab) 650 mg PO Q6 PRN PRN Reason: Fever >100.4 F Last Admin: 12/19/17 00:22 Dose: 650 mg Enoxaparin Sodium (Lovenox) 100 mg SC Q12 [facility] Last Admin: 12/18/17 21:55 Dose: 100 mg Hydromorphone HCl (Dilaudid) 0.5 mg IVP Q6H PRN PRN Reason: Pain, moderate (4-7) Last Admin: 12/19/17 03:37 Dose: 0.5 mg Potassium Chloride/Dextrose/Sod Cl (Potassium Chl 40 Meq In D5-1/2ns) 1,000 mls @ 100 mls/hr IV .Q10H [facility] Last Admin: 12/19/17 03:43 Dose: 100 mls/hr Lisinopril (Zestril) 40 mg PO DAILY [facility] Last Admin: 12/18/17 09:32 Dose: 40 mg Ondansetron HCl (Zofran Inj) 4 mg IVP ONCE PRN PRN Reason: nausea/vomiting - Labs Labs: 12/19/17 07:09 12/19/17 07:09 PT 12.3 SECONDS (9.7-12.2) H 12/16/17 22:41 INR 1.1 12/16/17 22:41 APTT 24 SECONDS (21-34) 12/16/17 22:41 - Constitutional Appears: Well, Non-toxic, No Acute Distress - ENT Exam ENT Exam: Mucous Membranes Moist - Respiratory Exam Respiratory Exam: NORMAL BREATHING PATTERN - Cardiovascular Exam Cardiovascular Exam: +S1, +S2 - GI/Abdominal Exam GI & Abdominal Exam: Soft, Tenderness. absent: Distended, Firm, Guarding, Rigid , Rebound Additional comments: mild incisional tenderness - Extremities Exam Extremities Exam: absent: Calf Tenderness, Pedal Edema - Neurological Exam Neurological Exam: Alert, Awake, Oriented x3 - Psychiatric Exam Psychiatric exam: Normal Affect, Normal Mood - Skin Skin Exam: Dry, Intact, Normal Color, Warm Additional comments: incision is clean and intact with minimal drainage. Assessment and Plan - Assessment and Plan (Free Text) Assessment: 57 yr old female s/p incisional hernia repair POD 4, with SBO which is resolving Plan: - pt to be OOBTC and walking as much as possible - will advance to IAD today - encourage IS usage - d/w Dr. Shah all further recs per her Susy Chen, PGY 1
[2017-12-19] MEDS: Enoxaparin 100 mg Syringe SC SCH ×2 (09:35→21:40)
[2017-12-19] MEDS: Oxycodone/Acetaminophen 5/325 mg Tab PO PRN (21:39)
[2017-12-20] MEDS: Oxycodone/Acetaminophen 5/325 mg Tab PO PRN ×3 (04:00→13:18)
[2017-12-20 08:09] LABS: BASO % 0.3 % (0.0-2.0); EOS # 0.2 K/uL (0.0-0.7); EOS % 2.8 % (0.0-4.0); HEMOGLOBIN 10.4 g/dL (11.0-16.0); LYMPH # 1.5 K/uL (1.0-4.3); MEAN CELL VOLUME 80.5 fL (81.0-99.0); MEAN CORPUSCULAR HEMOGLOBIN 27.4 pg (27.0-31.0); MEAN PLATELET VOLUME 8.2 fL (7.2-11.7); MONO # 1.1 K/uL (0.0-0.8); MONO % 13.4 % (0.0-10.0); NEUT # 5.4 K/uL (1.8-7.0); NEUT % 65.5 % (50.0-75.0); NRBC % 0.1 % (0.0-2.0); RBC 3.79 Mil/uL (3.80-5.20); RED CELL DISTRIBUTION WIDTH 14.7 % (11.5-14.5); WHITE BLOOD COUNT 8.3 K/uL (4.8-10.8)
[2017-12-20 08:19] LABS: BLOOD UREA NITROGEN 2 mg/dL (7-17); CALCIUM 8.2 mg/dl (8.6-10.4); GFR AFRICAN-AMERICAN > 60; GFR NON-AFRICAN AMERICAN > 60
[2017-12-20 08:34] VITALS: BP 116/78; PULSE 92; TEMP 97.8; O2SAT 97
[2017-12-20] MEDS: Potassium Chl 40 mEq in D5-1/2 1,000 ML IV SCH ×2 (09:08→11:58)
[2017-12-20] MEDS: Enoxaparin 100 mg Syringe SC SCH (09:15)
--- NOTE | 2017-12-20 11:42 | CP.PCM.DIS ---
Provider - Provider Date of Admission: 12/17/17 02:53 Attending physician: Renea Shah MD Time Spent in preparation of Discharge (in minutes): 30 Hospital Course - Lab Results Lab Results: Micro Results 12/16/17 20:30 Blood-Venous Blood Culture - Preliminary NO GROWTH AFTER 3 DAYS 12/16/17 20:00 Blood-Venous Blood Culture - Preliminary NO GROWTH AFTER 3 DAYS Most Recent Lab Values WBC 8.3 K/uL (4.8-10.8) 12/20/17 07:52 RBC 3.79 Mil/uL (3.80-5.20) L 12/20/17 07:52 Hgb 10.4 g/dL (11.0-16.0) L 12/20/17 07:52 Hct 30.5 % (34.0-47.0) L 12/20/17 07:52 MCV 80.5 fL (81.0-99.0) L 12/20/17 07:52 MCH 27.4 pg (27.0-31.0) 12/20/17 07:52 MCHC 34.0 g/dL (33.0-37.0) 12/20/17 07:52 RDW 14.7 % (11.5-14.5) H 12/20/17 07:52 Plt Count 286 K/uL (130-400) 12/20/17 07:52 MPV 8.2 fL (7.2-11.7) 12/20/17 07:52 Neut % (Auto) 65.5 % (50.0-75.0) 12/20/17 07:52 Lymph % (Auto) 18.0 % (20.0-40.0) L 12/20/17 07:52 [place] % (Auto) 13.4 % (0.0-10.0) H 12/20/17 07:52 Eos % (Auto) 2.8 % (0.0-4.0) 12/20/17 07:52 Baso % (Auto) 0.3 % (0.0-2.0) 12/20/17 07:52 Neut # (Auto) 5.4 K/uL (1.8-7.0) 12/20/17 07:52 Lymph # (Auto) 1.5 K/uL (1.0-4.3) 12/20/17 07:52 [place] # (Auto) 1.1 K/uL (0.0-0.8) H 12/20/17 07:52 Eos # (Auto) 0.2 K/uL (0.0-0.7) 12/20/17 07:52 Baso # (Auto) 0.0 K/uL (0.0-0.2) 12/20/17 07:52 PT 12.3 SECONDS (9.7-12.2) H 12/16/17 22:41 INR 1.1 12/16/17 22:41 APTT 24 SECONDS (21-34) 12/16/17 22:41 pO2 110 mm/Hg (30-55) H 12/16/17 22:40 VBG pH 7.49 (7.32-7.43) H 12/16/17 22:40 VBG pCO2 39 mmHg (40-60) L 12/16/17 22:40 VBG HCO3 29.6 mmol/L 12/16/17 22:40 VBG Total CO2 30.9 mmol/L (22-28) H 12/16/17 22:40 VBG O2 Sat (Calc) 99.2 % (40-65) H 12/16/17 22:40 VBG Base Excess 5.9 mmol/L (0.0-2.0) H 12/16/17 22:40 VBG Potassium 2.9 mmol/L (3.6-5.2) L 12/16/17 22:40 Sodium 135.0 mmol/l (132-148) 12/16/17 22:40 Chloride 101.0 mmol/L (98-107) 12/16/17 22:40 Glucose 106 mg/dl (65-105) H 12/16/17 22:40 Lactate 1.5 mmol/L (0.7-2.1) 12/16/17 22:40 Sodium 140 mmol/L (132-148) 12/20/17 07:52 Potassium 3.5 mmol/L (3.6-5.2) L 12/20/17 07:52 Chloride 104 mmol/L (98-107) 12/20/17 07:52 Carbon Dioxide 29 mmol/L (22-30) 12/20/17 07:52 Anion Gap 11 (10-20) 12/20/17 07:52 BUN 2 mg/dL (7-17) L 12/20/17 07:52 Creatinine 0.7 mg/dL (0.7-1.2) 12/20/17 07:52 Est GFR ( Amer) > 60 12/20/17 07:52 Est GFR (Non-Af Amer) > 60 12/20/17 07:52 Random Glucose 107 mg/dL (65-105) H 12/20/17 07:52 Calcium 8.2 mg/dl (8.6-10.4) L 12/20/17 07:52 Total Bilirubin 1.1 mg/dL (0.2-1.3) 12/16/17 22:41 AST 28 U/L (14-36) 12/16/17 22:41 ALT 19 U/L (9-52) 12/16/17 22:41 Alkaline Phosphatase 67 U/L (38-126) 12/16/17 22:41 Total Protein 8.0 g/dL (6.3-8.3) 12/16/17 22:41 Albumin 4.0 g/dL (3.5-5.0) 12/16/17 22:41 Globulin 4.0 gm/dL (2.2-3.9) H 12/16/17 22:41 Albumin/Globulin Ratio 1.0 (1.0-2.1) 12/16/17 22:41 Lipase 35 U/L (23-300) 12/17/17 00:20 Venous Blood Potassium 2.9 mmol/L (3.6-5.2) L 12/16/17 22:40 - Hospital Course Hospital Course: 12/17: 57F w/ PMHx of HTN, depression, anxiety, incisional hernia, presents to [facility] [place] ED with complaints of abdominal pain. Patient is s/p incisional hernia repain with mesh placement POD 4.Patient states she has not been able to tolerate food since surgery. Reports having nausea and several bouts of non bloody emesis after consuming food. Patient also reports several bouts of diarrhea. At time of examination patient complained of abdominal distension. Currently denies headache/dizziness, chest pain/SOB, dysuria. Therapeutic DVT protocol was commenced. 12/18:Patient was seen and examined today at bedside in no acute distress. Nurse reports no overnight events. Patient admits to BM x5 but no flatus. Complains of bloating, lightheadedness during exertion. Denies CP, SOB, n/v, f/c. 12/19:Patient seen and examined this am at bedside. no acute events overnight per nursing. Patient endorses mild incisional pain but no abdominal pain. She otherwise denies f/c/n/v and has been tolerating her diet well. endorses flatus but no BM. 12/20: Patient reports feeling much better. Admits to passing flatus and having BM. Tolerating diet. Denies headache/dizziness, chest pain/SOB, n/v/, dysuria. Patient to be discharged. To follow up in office in 1 week. Above is a brief summary of patient's hospital stay, for more details please refer to medical records. Discharge Exam - Head Exam Head Exam: ATRAUMATIC, NORMOCEPHALIC - Eye Exam Eye Exam: EOMI, Normal appearance, PERRL - ENT Exam ENT Exam: Mucous Membranes Moist - Respiratory Exam Respiratory Exam: NORMAL BREATHING PATTERN, UNREMARKABLE - Cardiovascular Exam Cardiovascular Exam: +S1, +S2 - GI/Abdominal Exam GI & Abdominal Exam: Soft. absent: Distended, Firm, Guarding, Hernia, Rigid, Tenderness - Neurological Exam Neurological exam: Alert, Oriented x3 - Psychiatric Exam Psychiatric exam: Normal Mood - Skin Skin Exam: Dry, Intact, Warm Discharge Plan - Follow Up Plan Condition: FAIR Disposition: HOME/ ROUTINE Patient education suggested?: Yes Instructions: Heart Healthy Diet, Postoperative Ileus (DC), Small Bowel Obstruction (DC) Additional Instructions: Avoid lifting anything heavier than 20lbs for at least 6 week OK to shower Do no submerge in water Keep surgical incision clean and dry Wear abdominal binder until seen in office Referrals: Renea Shah MD [Staff Provider] -
[2017-12-20] MEDS ORDERED: Potassium Chloride 20 mEq ER Tab PO ONE ×2 (12:48→13:15)
== END 2017-12-20 15:14 | disposition home or self-care (01) | DRG 189 ==
LOC: C.ER 21:29 → C.9E 12-17 02:53 → C.6T 12-17 04:29
PROVIDERS: ADMIT Specialist; ATTEND Specialist
DX: K91.30 Postprocedural intestinal obstruction, unspecified as to partial versus complete (principal); E78.00 Pure hypercholesterolemia, unspecified; I10 Essential (primary) hypertension; Z86.010 Personal history of colon polyps; F32.9 Major depressive disorder, single episode, unspecified; F41.9 Anxiety disorder, unspecified; Y83.8 Other surgical procedures as the cause of abnormal reaction of the patient, or of later complication, without mention of misadventure at the time of the procedure

== ENCOUNTER 2018-01-04 05:12 | Emergency (ER) | payer MEDICAID ==
[2018-01-04 05:13] VITALS: BMI 37.5
[2018-01-04 05:30] VITALS: TEMP 99.6
--- NOTE | 2018-01-04 06:11 | C.PDOC ---
History Of Present Illness 57 y/o female, NAVEED, presents to the ED for evaluation of ventricular hernia repair that is expelling "greenish" fluid since yesterday. The patient's daughter reports the patient went for the hernia repair 12/13/[address] Shah. She had the nislon removed in Dr. Shah's office on 01/01/18 and had no symptoms at the time. The patient denies fever, significant abdominal pain, vomiting, change in appetite or food intolerance, or constipation. AT the time of evaluation, appears comfortable, not in any apparent distress. Time Seen by Provider: 01/04/18 05:55 Chief Complaint (Nursing): Abnormal Skin Integrity History Per: Patient History/Exam Limitations: no limitations Onset/Duration Of Symptoms: Days Current Symptoms Are (Timing): Still Present Recent travel outside of the [place]: No Additional History Per: Family (Daughter) Past Medical History Reviewed: Historical Data, Nursing Documentation, Vital Signs Vital Signs: Last Vital Signs Temp 99.6 F 01/04/18 05:22 Pulse 101 H 01/04/18 05:22 Resp 14 01/04/18 05:22 BP 116/74 01/04/18 05:22 Pulse Ox 98 01/04/18 06:23 - Medical History PMH: Anxiety, Colonic Polyps, Depression, HTN, Hypercholesterolemia Denies: Chronic Kidney Disease Surgical History: Hernia Repair - [facility] Procedures (12/13/17) REPAIR ABDOMINAL WALL, OPEN APPROACH (09/08/15) RESECTION OF RIGHT LARGE INTESTINE, OPEN APPROACH (09/08/15) SUPPLEMENT ABDOMINAL WALL WITH SYNTH SUB, OPEN APPROACH (12/13/17) Family History: States: Unknown Family Hx - Social History Hx Tobacco Use: No Hx Alcohol Use: No Hx Substance Use: No - Immunization History Hx Tetanus Toxoid Vaccination: No Hx Influenza Vaccination: Yes Hx Pneumococcal Vaccination: No Review Of Systems Except As Marked, All Systems Reviewed And Found Negative. Constitutional: Negative for: Fever Gastrointestinal: Negative for: Abdominal Pain, Diarrhea, Constipation Skin: Positive for: Other (greenish fluid draining from ventricular hernia repair site) Physical Exam - Physical Exam Appears: Well, Non-toxic, No Acute Distress Skin: Warm, Other (Ventricular incision from umbilicus down to suprapubic region. ) Head: Normacephalic Eye(s): bilateral: PERRL Nose: No Flaring, No Discharge Oral Mucosa: Moist, No Drooling Neck: Supple Cardiovascular: Rhythm Regular, No Murmur, No JVD Respiratory: No Decreased Breath Sounds, No Accessory Muscle Use, No Rales, No Rhonchi, No Wheezing Gastrointestinal/Abdominal: Bowel Sounds (normal), Soft, Tenderness (well healing scar, no nilson with mild tenderness to along incision sadi that extend from umbilicus down to suprapubic region.), No Distention, No Guarding, No Rebound, Other (Moderate amount of yellowish clear discharge noted upon pressure from insicion site, mild erythema and warmth to touch over insicion line. No flactulance.) Back: No CVA Tenderness Extremity: Normal ROM, No Pedal Edema, No Deformity, No Swelling Extremity: Bilateral: Normal Color And Temperature, Normal ROM Neurological/Psych: Oriented x3, Normal Speech ED Course And Treatment O2 Sat by Pulse Oximetry: 98 (RA) Pulse Ox Interpretation: Normal Progress Note: 0558-- vice president global advertising sales was called for consult. 06, PT WAS EVALUATED BY [employer]. As per assembler surgical garment, was able to draine 20cc clear liquid from wound". Resident discused case diwth who recommend Rx: Keflex orally and discharge with outpt f/u on 01/08/18. NO further work up recommend at present time. On re-eval, pt is afebrile, hemodynamicaly stable,. Non-toxic. Abd: benig, (-) guarding, (-) rebound. Pt advised, stable for discharge wno. Disposition Counseled Patient/Family Regarding: Diagnosis, Need For Followup - Disposition Referrals: Renea Shah MD [Staff Provider] - Disposition: HOME/ ROUTINE Disposition Time: 06:33 Condition: STABLE Additional Instructions: FOLLOW UP WITH ON 01/08/18 FOR RE-EVALUATION. TAKE MEDICATION PRESCRIBED RETURN TO ED AT ANY TIME IF ANY WORSENING OR NEW CHANGES. Prescriptions: Cephalexin [cephalexin] 500 mg PO Q6 #28 cap Instructions: Abdominal Hernia Repair, Open Surgery Forms: [employer] (Icelandic) - Clinical Impression Clinical Impression: Cellulitis, S/P hernia repair - PA / PHOTOGRAPHY SPOTTER / Resident Statement MD/DO has reviewed & agrees with the documentation as recorded. - Scribe Statement The provider has reviewed the documentation as recorded by the Scribe (Jenny Dick) All medical record entries made by the Ja were at my direction and personally dictated by me. I have reviewed the chart and agree that the record accurately reflects my personal performance of the history, physical exam, medical decision making, and the department course for this patient. I have also personally directed, reviewed, and agree with the discharge instructions and disposition.
[2018-01-04 07:06] VITALS: BP 134/71; PULSE 78; RESP 16; O2SAT 97
--- NOTE | 2018-01-04 08:46 | CP.PCM.CON ---
History of Present Illness - History of Present Illness History of Present Illness: 57F PMHx of HTN, depression, anxiety, incisional hernia, presents to ED with complaints of abdominal drainage. Patient reports she was getting up from bed when she noticed fluid coming out from surgical site incision. Wound site was probed and ~20ccs of purulent fluid was expressed. Area was irrigated with normal saline and steril dressings applied. Patient is tolerating diet. Denied any fever/chills. PMH: as stated above PSHx: R hemicolectomy, umbilical hernia repair, incisional hernia repair All: NKDA Review of Systems - Review of Systems Review of Systems: 12 pt ROS negative, except as stated in HPI Past Patient History - Infectious Disease Hx of Infectious Diseases: None - Past Medical History & Family History Past Medical History?: Yes - Past Social History Smoking Status: Never Smoked - CARDIAC Hx Hypercholesterolemia: Yes Hx Hypertension: Yes - PULMONARY Hx Respiratory Disorders: No - NEUROLOGICAL Hx Neurological Disorder: No - HEENT Hx HEENT Problems: No - RENAL Hx Chronic Kidney Disease: No - ENDOCRINE/METABOLIC Hx Endocrine Disorders: No - HEMATOLOGICAL/ONCOLOGICAL Hx Blood Disorders: No - INTEGUMENTARY Hx Dermatological Problems: No - MUSCULOSKELETAL/RHEUMATOLOGICAL Hx Musculoskeletal Disorders: Yes Hx Back Pain: Yes Hx Falls: No Other/Comment: HX:BUNION RIGHT FOOT (& left) - GASTROINTESTINAL Hx Gastrointestinal Disorders: Yes Hx Bowel Surgery: Yes (HX: COLECTOMY) - GENITOURINARY/GYNECOLOGICAL Hx Genitourinary Disorders: No - PSYCHIATRIC Hx Anxiety: Yes Hx Depression: Yes Hx Substance Use: No - SURGICAL HISTORY Hx Surgeries: Yes Hx Section: Yes Hx Herniorrhaphy: Yes - ANESTHESIA Hx Anesthesia: Yes Hx Anesthesia Reactions: No Hx Malignant Hyperthermia: No Meds Home Medications: Home Medication List Medication Instructions Recorded Confirmed Type Cephalexin [cephalexin] 500 mg PO Q6 #28 cap 01/04/18 Rx Allergies/Adverse Reactions: Allergies Allergy/AdvReac Type Severity Reaction Status Date / Time No Known Allergies Allergy Verified 01/04/18 05:30 Physical Exam - Constitutional Appears: No Acute Distress - Head Exam Head Exam: NORMOCEPHALIC - Eye Exam Eye Exam: EOMI, Normal appearance - ENT Exam ENT Exam: Mucous Membranes Moist - Cardiovascular Exam Cardiovascular Exam: +S1, +S2 - GI/Abdominal Exam GI & Abdominal Exam: Soft, Tenderness. absent: Firm, Guarding Additional comments: erythematous region along mid portion of surgical incision - Skin Skin Exam: Dry, Erythema, Intact Results - Vital Signs Recent Vital Signs: Last Vital Signs Temp 99.6 F 01/04/18 05:22 Pulse 78 01/04/18 07:05 Resp 16 01/04/18 07:05 BP 134/71 01/04/18 07:05 Pulse Ox 97 01/04/18 07:05 Assessment & Plan - Assessment and Plan (Free Text) Assessment: 57F s/p incisional hernia repair with soft tissue abdominal collection Plan: -Wound cultures -D/c on -f/u w/ Dr. Shah on Saturday -D/w Dr. Pablo Bautistalatoya PGY3
== END 2018-01-04 07:05 | disposition home or self-care (01) ==
LOC: C.ER 05:12
DX: L03.311 Cellulitis of abdominal wall (principal); Z98.890 Other specified postprocedural states

== ENCOUNTER 2018-01-08 18:02 | Inpatient (IN) | payer MEDICAID ==
[~2018-01-08 18:02] MED LIST: Vancomycin 1 GM 1 GM/250 ML BAG IVPB ONE
[2018-01-08 18:03] VITALS: BMI 37.5
--- NOTE | 2018-01-08 20:01 | C.PDOC ---
History Of Present Illness The patient presents to the ED for evaluation of abdominal pain with some purulent material drainage from her non-closed surgical site for the past week. Patient also reports fever and states she experienced a couple episodes of vomiting. Patient denies diarrhea and urinary symptoms at this time. Time Seen by Provider: 01/08/18 20:00 Chief Complaint (Nursing): GI Problem History Per: Patient History/Exam Limitations: no limitations Onset/Duration Of Symptoms: Days Current Symptoms Are (Timing): Still Present Severity: Moderate Pain Scale Rating Of: 4 Location Of Pain/Discomfort: Diffuse, Periumbilical Radiation Of Pain To:: None Quality Of Discomfort: Dull, Aching, "Pain" Associated Symptoms: Fever, Nausea, Vomiting. denies: Diarrhea, Urinary Symptoms Exacerbating Factors: None Alleviating Factors: None Last Bowel Movement: Today Recent travel outside of the [place]: No Additional History Per: Patient Abnormal Vaginal Bleeding: No Past Medical History Reviewed: Historical Data, Nursing Documentation, Vital Signs Vital Signs: Last Vital Signs Temp 98.9 F 01/08/18 22:56 Pulse 97 H 01/08/18 22:56 Resp 16 01/08/18 22:56 BP 96/62 L 01/08/18 22:56 Pulse Ox 96 01/08/18 22:56 - Medical History PMH: Anxiety, Colonic Polyps, Depression, HTN, Hypercholesterolemia Denies: Chronic Kidney Disease Surgical History: Hernia Repair - [facility] Procedures (12/13/17) REPAIR ABDOMINAL WALL, OPEN APPROACH (09/08/15) RESECTION OF RIGHT LARGE INTESTINE, OPEN APPROACH (09/08/15) SUPPLEMENT ABDOMINAL WALL WITH SYNTH SUB, OPEN APPROACH (12/13/17) Family History: States: Unknown Family Hx - Social History Hx Tobacco Use: No Hx Alcohol Use: No Hx Substance Use: No - Immunization History Hx Tetanus Toxoid Vaccination: No Hx Influenza Vaccination: Yes Hx Pneumococcal Vaccination: No Review Of Systems Constitutional: Positive for: Fever Cardiovascular: Negative for: Chest Pain, Palpitations Respiratory: Negative for: Cough, Shortness of Breath Gastrointestinal: Positive for: Nausea, Vomiting, Abdominal Pain. Negative for : Diarrhea Genitourinary: Negative for: Dysuria, Hematuria, Vaginal Discharge, Vaginal Bleeding Musculoskeletal: Negative for: Back Pain Skin: Negative for: Rash, Lesions, Jaundice, Bruising Neurological: Negative for: Weakness, Numbness Psych: Negative for: Anxiety Physical Exam - Physical Exam Appears: Non-toxic Skin: Warm, Dry Head: Normacephalic Eye(s): bilateral: Normal Inspection Oral Mucosa: Moist Neck: Supple Chest: Symmetrical, No Deformity, No Tenderness Cardiovascular: Rhythm Regular, No Murmur Respiratory: No Rales, No Rhonchi, No Wheezing Gastrointestinal/Abdominal: Soft, Tenderness (diffuse ), No Guarding, No Rebound , Other (3.5-4cm open surface incision to subumbilical midline with some purulent drainage ) Back: No CVA Tenderness Extremity: Normal ROM, Capillary Refill (less than 2 seconds ) Extremity: Bilateral: Atraumatic Pulses: Left Dorsalis Pedis: Normal, Right Dorsalis Pedis: Normal Neurological/Psych: Oriented x3 Gait: Steady ED Course And Treatment - Laboratory Results Result Diagrams: 01/08/18 20:18 01/08/18 20:18 O2 Sat by Pulse Oximetry: 96 Pulse Ox Interpretation: Normal Progress Note: Bloodwork and urinalysis ordered and reviewed. Toradol IVP, Zofran IVP, and IV Fluids given. Disposition Discussed With : Renea Shah Comment: accepted the pt on her service and took over the care at 11:44 PM Doctor Will See Patient In The: ED Counseled Patient/Family Regarding: Studies Performed, Diagnosis - Disposition Disposition: HOSPITALIZED Disposition Time: 20:01 Condition: GUARDED Forms: [facility] (Citizen [place]) - POA Present On Arrival: Poor Glycemic Control - Clinical Impression Clinical Impression: Abdominal pain, Small bowel perforation - Scribe Statement The provider has reviewed the documentation as recorded by the Scribe (Camille Gage) Provider Attestation: All medical record entries made by the Raeibe were at my direction and personally dictated by me. I have reviewed the chart and agree that the record accurately reflects my personal performance of the history, physical exam, medical decision making, and the department course for this patient. I have also personally directed, reviewed, and agree with the discharge instructions and disposition. Decision To Admit - Pt Status Changed To: Hospital Disposition Of: Inpatient - Admit Certification Admit to Inpatient:: After my assessment, the patient will require hospitalization for at least two midnights. This is because of the severity of symptoms shown, intensity of services needed, and/or the medical risk in this patient being treated as an outpatient. - InPatient: Physician Admission Certification:: After my assessment, the patient will require hospitalization for at least two midnights. This is because of the severity of symptoms shown, intensity of services needed, and/or the medical risk in this patient being treated as an outpatient. - . Bed Request Type: Regular Admitting Physician: Renea Shah Patient Diagnosis: Abdominal pain, Small bowel perforation
[2018-01-08] MEDS ORDERED: Sodium Chloride 0.9% 1,000 ML IV ONE ×2 (20:11→20:48)
[2018-01-08] MEDS ORDERED: Sodium Chloride 0.9% 1,000 ML ONE (20:21)
[2018-01-08 20:22] LABS: VENOUS BLOOD GAS BASE EXCESS -0.3 mmol/L (0.0-2.0); VENOUS BLOOD GAS PCO2 32 mmHg (40-60); VENOUS BLOOD GAS PO2 49 mm/Hg (30-55); VENOUS BLOOD PH 7.46 (7.32-7.43)
[2018-01-08 20:22] LABS: BASO # 0.1 K/uL (0.0-0.2); EOS # 0.3 K/uL (0.0-0.7); EOS % 2.6 % (0.0-4.0); HEMOGLOBIN 10.7 g/dL (11.0-16.0); LYMPH # 2.3 K/uL (1.0-4.3); LYMPH % 19.1 % (20.0-40.0); MEAN CELL VOLUME 81.1 fL (81.0-99.0); MEAN CORPUSCULAR HEMOGLOBIN 26.4 pg (27.0-31.0); MEAN CORPUSCULAR HGB CONC 32.6 g/dL (33.0-37.0); MEAN PLATELET VOLUME 7.8 fL (7.2-11.7); MONO # 1.1 K/uL (0.0-0.8); NEUT # 8.4 K/uL (1.8-7.0); NEUT % 68.3 % (50.0-75.0); NRBC % 0.1 % (0.0-2.0); RBC 4.05 Mil/uL (3.80-5.20); RED CELL DISTRIBUTION WIDTH 15.6 % (11.5-14.5); WHITE BLOOD COUNT 12.3 K/uL (4.8-10.8)
[2018-01-08 20:33] LABS: SQUAMOUS EPITHIAL < 1 /hpf (0-5); URINE BACTERIA RARE (<OCC); URINE BILIRUBIN NEGATIVE (NEGATIVE); URINE BLOOD 1+ (NEGATIVE); URINE CLARITY Hazy (Clear); URINE GLUCOSE (UA) NORMAL (Normal); URINE LEUKOCYTE ESTERASE NEG Leu/uL (Negative); URINE PROTEIN NEGATIVE (NEGATIVE)
[2018-01-08 20:35] LABS: URINE COLOR YELLOW (YELLOW)
[2018-01-08 20:38] LABS: INR 1.3; PROTHROMBIN TIME 13.7 SECONDS (9.7-12.2)
[2018-01-08 20:39] LABS: ALB/GLOB RATIO 0.8 (1.0-2.1); ALBUMIN 3.8 g/dL (3.5-5.0); ALT/SGPT 61 U/L (9-52); AST/SGOT 72 U/L (14-36); BLOOD UREA NITROGEN 11 mg/dL (7-17); CALCIUM 9.1 mg/dl (8.6-10.4); GFR NON-AFRICAN AMERICAN > 60; LIPASE 36 U/L (23-300)
[2018-01-08] MEDS ORDERED: Piperacillin/Tazobact 3.375 gm 100 ML IVPB STA (20:47)
[2018-01-08] MEDS ORDERED: Piperacillin/Tazobact 3.375 gm 100 ML IVPB ONE (21:00)
[2018-01-08] MEDS ORDERED: Iohexol 240 (50 ml) ONE (21:48)
[2018-01-08] MEDS ORDERED: Iohexol 350mg/ml 100 ML ONE (22:10)
[2018-01-08] MEDS ORDERED: Vancomycin 1 GM 1 GM/250 ML BAG IVPB SCH (23:45)
[2018-01-09] MEDS ORDERED: Vancomycin 1 gm/NS 200 ml 1 GM/200 ML BAG IVPB STA (00:12)
[2018-01-09] MEDS ORDERED: HYDROmorphone 0.5 mg/0.5 ml ISec IVP PRN (00:31)
--- NOTE | 2018-01-09 00:45 | CP.PCM.HP ---
History of Present Illness - History of Present Illness History of Present Illness: General surgery for Dr. Shah- Shannon Murray, PGY-2 Pt S & E at bedside at 0015 57F w/PSH sig for incision hernia repair (12/13) consulted/admitted for the same. Pt reports that after having nilson removed, she noted drainage from wound, which has been draining ever since. Seen in ED on 01/04 with c/o of abdominal drainage and wound pain, sent home on Keflex with instructions to follow up with Dr. Shah. Was unable to keep appointment due to lack of transportation. Pt reported to ED. Admits to fevers & chills x 1 week, fatigue , malaise, weakness, new onset left lower extremity swelling, one episode of SOB , diarrhea (that started prior to taking Keflex), back pain, dizziness. Denies CP, ISAAC, constipation, dysuria, hematura, hematochezia, other complaints. In ED- febrile, Tmax 101.2. Leukocytosis of 12.3. CT ab w/findings of small bowel leak/perforation w/free oral contrast & gas collection along anterior supra-umbilical abdominal wall -11 x 4.4 cm- source is next to small bowel- colon anastomosis. PMH: HTN, Depression, anxiety, PSH: Incisional hernia repair with mesh (12/13), R hemicolectomy, Umbilical hernia repair All: NKDA SH: Denies ETOH, tobacco, or illicit drug use FH: Non contributory Present on Admission - Present on Admission Any Indicators Present on Admission: No History of DVT/PE: No History of Uncontrolled Diabetes: No Urinary Catheter: No Decubitus Ulcer Present: No Review of Systems - Review of Systems All systems: reviewed and no additional remarkable complaints except - Constitutional Constitutional: Chills, Fever - EENT Eyes: absent: Change in Vision Ears: absent: Dizziness Nose/Mouth/Throat: absent: Sore Throat - Cardiovascular Cardiovascular: absent: Chest Pain - Respiratory Respiratory: absent: Cough - Gastrointestinal Gastrointestinal: Abdominal Pain, Change in Bowel Habits, Diarrhea, Nausea, Vomiting. absent: Hematemesis, Hematochezia - Genitourinary Genitourinary: absent: Hematuria, Pyuria - Musculoskeletal Musculoskeletal: Back Pain. absent: Numbness, Tingling - Integumentary Integumentary: Wounds. absent: Rash - Neurological Neurological: Weakness - Psychiatric Psychiatric: Change in Appetite (decreased) - Endocrine Endocrine: Fatigue Past Patient History - Infectious Disease Hx of Infectious Diseases: None - Past Medical History & Family History Past Medical History?: Yes - Past Social History Smoking Status: Never Smoked - CARDIAC Hx Hypercholesterolemia: Yes Hx Hypertension: Yes - PULMONARY Hx Respiratory Disorders: No - NEUROLOGICAL Hx Neurological Disorder: No - HEENT Hx HEENT Problems: No - RENAL Hx Chronic Kidney Disease: No - ENDOCRINE/METABOLIC Hx Endocrine Disorders: No - HEMATOLOGICAL/ONCOLOGICAL Hx Blood Disorders: No - INTEGUMENTARY Hx Dermatological Problems: No - MUSCULOSKELETAL/RHEUMATOLOGICAL Hx Musculoskeletal Disorders: Yes Hx Back Pain: Yes Hx Falls: No Other/Comment: HX:BUNION RIGHT FOOT (& left) - GASTROINTESTINAL Hx Gastrointestinal Disorders: Yes Hx Bowel Surgery: Yes (HX: COLECTOMY) - GENITOURINARY/GYNECOLOGICAL Hx Genitourinary Disorders: No - PSYCHIATRIC Hx Anxiety: Yes Hx Depression: Yes Hx Substance Use: No - SURGICAL HISTORY Hx Surgeries: Yes Hx Section: Yes (X2) Hx Herniorrhaphy: Yes (12/13/17) - ANESTHESIA Hx Anesthesia: Yes Hx Anesthesia Reactions: No Hx Malignant Hyperthermia: No Meds Allergies/Adverse Reactions: Allergies Allergy/AdvReac Type Severity Reaction Status Date / Time No Known Allergies Allergy Verified 01/08/18 18:41 Physical Exam - Constitutional Appears: Non-toxic, No Acute Distress - Head Exam Head Exam: ATRAUMATIC, NORMAL INSPECTION, NORMOCEPHALIC - Eye Exam Eye Exam: EOMI, Normal appearance - ENT Exam ENT Exam: Mucous Membranes Moist, Normal Exam - Neck Exam Neck exam: Positive for: Full Rom, Normal Inspection - Respiratory Exam Respiratory Exam: Clear to Auscultation Bilateral, NORMAL BREATHING PATTERN. absent: Rhonchi, Wheezes, Respiratory Distress - Cardiovascular Exam Cardiovascular Exam: REGULAR RHYTHM, +S1, +S2 - GI/Abdominal Exam GI & Abdominal Exam: Soft, Tenderness. absent: Distended, Guarding Additional comments: Midline incision with granulation tissue at sides, purulent drainage with palpation, tender - Extremities Exam Extremities exam: Positive for: normal inspection - Neurological Exam Neurological exam: Alert, CN II-XII Intact, Oriented x3 - Psychiatric Exam Psychiatric exam: Normal Affect, Normal Mood - Skin Skin Exam: Normal Color, Warm Results - Vital Signs Recent Vital Signs: Last Vital Signs Temp 98.9 F 01/08/18 22:56 Pulse 97 H 01/08/18 22:56 Resp 16 01/08/18 22:56 BP 96/62 L 01/08/18 22:56 Pulse Ox 96 01/08/18 23:50 - Labs Result Diagrams: 01/08/18 20:18 01/08/18 20:18 Labs: Laboratory Results - last 24 hr 01/08/18 01/08/18 01/08/18 20:13 20:18 20:18 WBC 12.3 H RBC 4.05 Hgb 10.7 L Hct 32.8 L MCV 81.1 MCH 26.4 L MCHC 32.6 L RDW 15.6 H Plt Count 484 H D MPV 7.8 Neut % (Auto) 68.3 Lymph % (Auto) 19.1 L Custer % (Auto) 9.0 Eos % (Auto) 2.6 Baso % (Auto) 1.0 Neut # (Auto) 8.4 H Lymph # (Auto) 2.3 [place] # (Auto) 1.1 H Eos # (Auto) 0.3 Baso # (Auto) 0.1 PT 13.7 H INR 1.3 APTT 28 pO2 49 VBG pH 7.46 H VBG pCO2 32 L VBG HCO3 24.4 VBG Total CO2 23.8 VBG O2 Sat (Calc) 87.4 H VBG Base Excess -0.3 L VBG Potassium 4.5 Sodium 134.0 Chloride 100.0 Glucose 113 H Lactate 1.6 Potassium Carbon Dioxide Anion Gap BUN Creatinine Est GFR ( Amer) Est GFR (Non-Af Amer) Random Glucose Calcium Total Bilirubin AST ALT Alkaline Phosphatase NT-Pro-B Natriuret Pep Total Protein Albumin Globulin Albumin/Globulin Ratio Lipase Venous Blood Potassium 4.5 Urine Color Urine Clarity Urine pH Ur Specific [place] Urine Protein Urine Glucose (UA) Urine Ketones Urine Blood Urine Nitrate Urine Bilirubin Urine Urobilinogen Ur Leukocyte Esterase Urine WBC (Auto) Urine RBC (Auto) Ur Squamous Epith Cells Urine Bacteria 01/08/18 01/08/18 01/08/18 20:18 20:18 21:14 WBC RBC Hgb Hct MCV MCH MCHC RDW Plt Count MPV Neut % (Auto) Lymph % (Auto) [place] % (Auto) Eos % (Auto) Baso % (Auto) Neut # (Auto) Lymph # (Auto) [place] # (Auto) Eos # (Auto) Baso # (Auto) PT INR APTT pO2 VBG pH VBG pCO2 VBG HCO3 VBG Total CO2 VBG O2 Sat (Calc) VBG Base Excess VBG Potassium Sodium 133 Chloride 99 Glucose Lactate Potassium 5.2 Carbon Dioxide 19 L Anion Gap 20 BUN 11 Creatinine 0.8 Est GFR ( Amer) > 60 Est GFR (Non-Af Amer) > 60 Random Glucose 111 H Calcium 9.1 Total Bilirubin 1.3 AST 72 H D ALT 61 H D Alkaline Phosphatase 173 H D NT-Pro-B Natriuret Pep 31.1 Total Protein 8.7 H Albumin 3.8 Globulin 4.9 H Albumin/Globulin Ratio 0.8 L Lipase 36 Venous Blood Potassium Urine Color Yellow Urine Clarity Hazy Urine pH 6.0 Ur Specific [place] 1.016 Urine Protein Negative Urine Glucose (UA) Normal Urine Ketones Negative Urine Blood 1+ H Urine Nitrate Negative Urine Bilirubin Negative Urine Urobilinogen 4.0 H Ur Leukocyte Esterase Neg Urine WBC (Auto) 3 Urine RBC (Auto) 19 H Ur Squamous Epith Cells < 1 Urine Bacteria Rare Assessment & Plan - Assessment and Plan (Free Text) Assessment: 57F w/small bowel leak/perforation s/p incisional hernia repair with mesh Plan: Admit to med-surg VS Q6H Activity as tolerated NPO FU wound cx IV Abx Pain control Wound care PRN OOBTC PT/OT DVT/GI ppx Plan for OR tomorrow FU EKG FU CXR FU Am labs DW Dr. Pablo Murray, PGY-2 - Date & Time Date: 01/09/18 Time: 00:15 Decision To Admit - Pt Status Changed To: Hospital Disposition Of: Inpatient - Admit Certification Admit to Inpatient:: After my assessment, the patient will require hospitalization for at least two midnights. This is because of the severity of symptoms shown, intensity of services needed, and/or the medical risk in this patient being treated as an outpatient. - InPatient: Physician Admission Certification:: small bowel leak requiring operation - . Bed Request Type: Regular Admitting Physician: Renea Shah
[2018-01-09] MEDS: Lactated Ringer's 1,000 ML IV SCH ×4 (02:43→21:02)
[2018-01-09] MEDS: Piperacill/Tazo 3.375gm in Dex 3.375 GM/50 ML BAG IVPB SCH ×4 (05:34→20:14)
--- NOTE | 2018-01-09 10:09 | RAD ---
Date of service: 01/09/2018 PROCEDURE: CHEST RADIOGRAPH, 1 VIEW HISTORY: pre op COMPARISON: 12/16/2017 FINDINGS: LUNGS: No consolidation. There is improved aeration at both lung bases. Linear discoid atelectasis right perihilar left lung base noted. PLEURA: No pneumothorax or pleural fluid seen. CARDIOVASCULAR: Minimal cardiomegaly. Tortuous unfolded thoracic aorta. Minimal pulmonary venous congestion -similar to perhaps slightly decreased since prior exam. OSSEOUS STRUCTURES: Thoracic spondylosis. Bilateral shoulder arthrosis. VISUALIZED UPPER ABDOMEN: Normal. OTHER FINDINGS: None. IMPRESSION: Interval improved aeration at both lung bases. Trace interval discoid atelectasis as above.
--- NOTE | 2018-01-09 11:56 | CT ---
Date of service: 01/08/2018 PROCEDURE: CT Abdomen and Pelvis with contrast HISTORY: Abdominal pain, s/p hernia repair COMPARISON: 12/17/2017. TECHNIQUE: Contrast dose: 100 mL Omnipaque 350 Radiation dose: Total exam DLP = 967.42 mGy-cm. This CT exam was performed using one or more of the following dose reduction techniques: Automated exposure control, adjustment of the mA and/or kV according to patient size, and/or use of iterative reconstruction technique. FINDINGS: LOWER THORAX: Subsegmental atelectasis in the lung bases. LIVER: Unremarkable. No gross lesion or ductal dilatation. GALLBLADDER AND BILE DUCTS: Unremarkable. PANCREAS: Unremarkable. No gross lesion or ductal dilatation. SPLEEN: Unremarkable. ADRENALS: Unremarkable. No mass. KIDNEYS AND URETERS: Unremarkable. No hydronephrosis. No solid mass. VASCULATURE: Unremarkable. No aortic aneurysm. BOWEL: There is a large supraumbilical collection along the anterior abdominal wall collection containing oral contrast and gas measuring approximately 11.0 x 4.4 cm. The source of bowel leak appears to be a small bowel to the right of the collection. The ileotransverse anastomosis appears intact and not associated with the collection. APPENDIX: Normal appendix. PERITONEUM: Unremarkable. No free fluid. No free air. LYMPH NODES: Unremarkable. No enlarged lymph nodes. BLADDER: Unremarkable. REPRODUCTIVE: Unremarkable. BONES: No acute fracture. OTHER FINDINGS: None. IMPRESSION: Small bowel leak/perforation with development of a large supraumbilical collection containing oral contrast and gas measuring approximately 11.0 x 4.4 cm along the anterior abdominal wall. . Source of leak appears to be small bowel to the right of the collection. The ileocolic anastomosis appears intact 10 not associated with the leak. A preliminary report was provided by [employer].
[2018-01-09] MEDS ORDERED: Iohexol 240 (50 ml) ONE (14:56)
[2018-01-09] MEDS ORDERED: Piperacillin/Tazobact 3.375 gm 100 ML IVPB ONE (14:56)
[2018-01-09] MEDS ORDERED: HEPARIN-NS 5,000 UNITS/500 ML 5,000 UNIT/500 ML BAG IV ONE (14:56)
[2018-01-09] MEDS ORDERED: Midazolam 2 MG/2 ML VIAL ONE (15:14)
[2018-01-09] MEDS ORDERED: Propofol 10 mg/ml Inj (20 ML) ONE (15:14)
[2018-01-09] MEDS: Piperacillin/Tazobact 3.375 gm 0 ML IVPB ONE (15:34)
[2018-01-09] MEDS ORDERED: Rocuronium 10 mg/ml (5 ml) ONE ×2 (15:54→17:05)
[2018-01-09] MEDS ORDERED: Phenylephrine 10 mg/ml Inj ONE (15:54)
[2018-01-09] MEDS ORDERED: Succinylcholine Chloride 20 mg/ml Syr (5 ml) IV ONE (15:54)
--- NOTE | 2018-01-09 16:31 | RAD ---
Date of service: 01/09/2018 PROCEDURE: Intraoperative Fluoroscopy. HISTORY: DVT LEFT LEG FINDINGS: Fluoroscopic assistance was provided for IVC filter placement. Please refer to the operative report from [facility]. Total fluoroscopic time (continuous mode) utilized during the procedure 143.6 (seconds). Total exam DLP: 67.55 (mGy).
[2018-01-09] MEDS ORDERED: Thrombin Topical 20,000 Intl Units Spray Kit TOP ONE (16:43)
[2018-01-09] MEDS ORDERED: Neostigmine Methylsulfate 3mg/3ml Syringe IV ONE (17:05)
--- NOTE | 2018-01-09 17:27 | PCM.SURG1 ---
Surgeon's Initial Post Op Note - Surgeon's Notes Surgeon: Dr. Parikh Fish Skinning Machine Feeder: Dr. Wise PGY3 Type of Anesthesia: General Endo Pre-Operative Diagnosis: L leg DVT Operative Findings: see operative report Post-Operative Diagnosis: see operative report Operation Performed: Insertion of IVC filter Specimen/Specimens Removed: none Estimated Blood Loss: EBL {In ML}: 5 Blood Products Given: N/A Drains Used: No Drains Post-Op Condition: Good Date of Surgery/Procedure: 01/09/18 Time of Surgery/Procedure: 15:00
[2018-01-09] MEDS ORDERED: Lactated Ringer's 1,000 ML IV ONE ×2 (17:30→18:00)
--- NOTE | 2018-01-09 17:30 | PCM.SURG1 ---
Surgeon's Initial Post Op Note - Surgeon's Notes Surgeon: Dr. Shah [employer] Internship: Dr. Latif PGY4, Dr. 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 flosealant to fistula Specimen/Specimens Removed: mesh Estimated Blood Loss: EBL {In ML}: 10 Blood Products Given: N/A Drains Used: Bobby ConnorRoberto fuentes Post-Op Condition: Good Date of Surgery/Procedure: 01/09/18 Time of Surgery/Procedure: 17:30
[2018-01-09] MEDS ORDERED: Morphine Monoject Barrel PCA 1mg/ml IV PRN (17:33)
[2018-01-09] MEDS: HYDROmorphone 0.5 mg/0.5 ml ISec IVP PRN ×3 (17:53→18:38)
[2018-01-10 00:22] VITALS: RESP 20
[2018-01-10] MEDS: Piperacill/Tazo 3.375gm in Dex 3.375 GM/50 ML BAG IVPB SCH ×4 (00:57→17:26)
[2018-01-10] MEDS: Lactated Ringer's 1,000 ML IV SCH ×5 (01:39→23:39)
--- NOTE | 2018-01-10 07:45 | OP ---
PROCEDURE DATE: 01/09/2018 The patient is seen at the request of Dr. Shah because of discovery of deep vein thrombosis of left leg when she is going to concurrently undergo surgery for a small valve leak, also mesh infection. PREOPERATIVE DIAGNOSIS: Deep vein thrombosis, left leg. POSTOPERATIVE DIAGNOSIS: Deep vein thrombosis, left leg. PROCEDURE CARRIED OUT: Placement of ____ leak removal filter via right femoral vein with C-arm fluoroscopy and ultrasound-guided puncture, micropuncture technique. SURGEON: Ian Parikh Jr., MD BOOM TENDER: Gera Wise DO ANESTHESIOLOGIST: ____ INDICATIONS: The patient is a middle-aged woman who recently underwent hernia surgery, found to have a leak and has leakage through the anterior abdominal wall. OPERATIVE FINDINGS: Filter was placed via the right femoral vein after filtered to the right in an ectopic location above the level of the renal vein. PROCEDURE: The patient was given general anesthesia. Using ultrasound guidance and micropuncture technique the right common femoral vein was punctured. Under fluoroscopic control, the guidewire was advanced centrally. Using micropuncture technique, this was exchanged with an 0.035 wire. The filter was deployed. Vena cavagram was taken. Unfortunately, the filter was deployed at a higher level than anticipated and was released at the level. and it was slightly tilted to the right, but other than this, just in a higher position. Procedure was then terminated. Pressure was applied to the groin. Operation carried out was placement of leak removal filter via right femoral vein. Ian Parikh Jr., MD
[2018-01-10 08:00] LABS: BASO % 0.3 % (0.0-2.0); EOS # 0.3 K/uL (0.0-0.7); EOS % 2.7 % (0.0-4.0); HEMOGLOBIN 9.4 g/dL (11.0-16.0); LYMPH # 1.2 K/uL (1.0-4.3); LYMPH % 11.6 % (20.0-40.0); MEAN CELL VOLUME 79.2 fL (81.0-99.0); MEAN CORPUSCULAR HEMOGLOBIN 25.9 pg (27.0-31.0); MEAN CORPUSCULAR HGB CONC 32.7 g/dL (33.0-37.0); MEAN PLATELET VOLUME 7.1 fL (7.2-11.7); MONO # 0.8 K/uL (0.0-0.8); MONO % 7.8 % (0.0-10.0); NEUT # 8.3 K/uL (1.8-7.0); NEUT % 77.6 % (50.0-75.0); RBC 3.62 Mil/uL (3.80-5.20); RED CELL DISTRIBUTION WIDTH 15.5 % (11.5-14.5); WHITE BLOOD COUNT 10.7 K/uL (4.8-10.8)
[2018-01-10 08:09] LABS: INR 1.3; PROTHROMBIN TIME 14.2 SECONDS (9.7-12.2)
[2018-01-10 08:11] LABS: ALB/GLOB RATIO 0.8 (1.0-2.1); ALT/SGPT 38 U/L (9-52); AST/SGOT 22 U/L (14-36); BLOOD UREA NITROGEN 4 mg/dL (7-17); CALCIUM 8.2 mg/dl (8.6-10.4); GFR NON-AFRICAN AMERICAN > 60
[2018-01-10] MEDS: Enoxaparin 100 mg Syringe SC SCH ×2 (09:57→21:33)
--- NOTE | 2018-01-10 11:17 | VASCLAB ---
Date of service: 01/09/2018 PROCEDURE: Lower Extremity Venous Duplex Exam. HISTORY: Left leg swelling PRIORS: No previous vascular study. TECHNIQUE: Bilateral common femoral, femoral, popliteal and posterior tibial, peroneal and great saphenous veins were evaluated. Flow was assessed with color Doppler, compressibility, assessment of phasic flow and augmentation response. Report prepared by TARYN Potter FINDINGS: RIGHT: 1. Common Femoral Vein: 1.1. Compressibility - Fully compressible: Thrombus - None : Flow - Phasic: Augmentation -Normal: Reflux - None. 2. Femoral Vein: 2.1. Compressibility - Fully compressible: Thrombus - None : Flow - Phasic: Augmentation -Normal: Reflux - None. 3. Popliteal Vein: 3.1. Compressibility - Fully compressible: Thrombus - None : Flow - Phasic: Augmentation -Normal: Reflux - Mild 1.49s 4. Posterior Tibial Vein: 4.1. Compressibility - Fully compressible: Thrombus - None: Flow - Phasic: Augmentation -Normal: Reflux - None. 5. Peroneal Vein: 5.1. Compressibility - Fully compressible: Thrombus - None: Flow - Phasic: Augmentation -Normal: Reflux - None. 6. Great Saphenous Vein: 6.1. Compressibility - Fully compressible: Thrombus - None: Flow - Phasic: Augmentation - Normal: Reflux - None. LEFT: 1. Common Femoral Vein: 1.1. Compressibility - Fully compressible: Thrombus - None: Flow - Phasic: Augmentation -Normal: Reflux - None. 2. Femoral Vein: 2.1. Compressibility - Partial: Thrombus - Acute: Flow - Reduced : Augmentation -Normal: Reflux - None. 3. Popliteal Vein: 3.1. Compressibility - Partial: Thrombus - Acute : Flow - Reduced : Augmentation -Normal: Reflux - None. 4. Posterior Tibial Vein: 4.1. Compressibility - Incompressible: Thrombus - Acute: Flow - Absent : Augmentation -Normal: Reflux - None. 5. Peroneal Vein: 5.1. Compressibility - Fully compressible: Thrombus - None: Flow - Phasic: Augmentation -Normal: Reflux - None. 6. Great Saphenous Vein: 6.1. Compressibility - Fully compressible: Thrombus - None: Flow - Phasic: Augmentation - Normal: Reflux - None. OTHER FINDINGS: Right: None significant. Left: None significant. IMPRESSION: Right: No evidence of deep or superficial vein thrombosis of the right lower extremity. Normal valve function noted of the right side. Left: 1. Partially occlusive acute deep vein thrombosis, of the left femoral and popliteal veins with mild reduction of the venous return. 2. Totally occluding acute deep vein thrombosis of the left posterior tibial veins, with absent phasic venous flow. Findings were reported to Ita Hogue at 11:40 a.m.
[2018-01-10] MEDS: Ergocalciferol 50,000 Intl Units Cap PO SCH (11:58)
[2018-01-10] MEDS: buPROPion SR 150 MG TABLET PO SCH (11:59)
--- NOTE | 2018-01-10 12:27 | RAD ---
HISTORY: verify right PICC COMPARISON: Chest x-ray performed 01/09/18 TECHNIQUE: Chest, one view. FINDINGS: Right-sided PICC extends expected location of the SVC. Examination limited by habitus. LUNGS: Mild bibasilar atelectasis/infiltrates. Please note that chest x-ray has limited sensitivity for the detection of pulmonary masses. PLEURA: No significant pleural effusion identified. No definite pneumothorax . CARDIOVASCULAR: Borderline cardiomegaly. OSSEOUS STRUCTURES: Degenerative changes. VISUALIZED UPPER ABDOMEN: Unremarkable. OTHER FINDINGS: None. IMPRESSION: Right-sided PICC extends to the expected location of the SVC. Cardiomegaly. Mild bibasilar atelectasis/infiltrates.
[2018-01-11] MEDS: Piperacill/Tazo 3.375gm in Dex 3.375 GM/50 ML BAG IVPB SCH ×5 (00:40→23:52)
[2018-01-11] MEDS: HYDROmorphone 0.5 mg/0.5 ml ISec IVP PRN ×2 (01:53→11:18)
[2018-01-11] MEDS: Lactated Ringer's 1,000 ML IV SCH (05:59)
[2018-01-11] MEDS: Potassium Ch 20mEq in D5-1/2NS 1,000 ML IV SCH ×3 (07:25→16:36)
[2018-01-11 07:54] LABS: BASO # 0.1 K/uL (0.0-0.2); BASO % 0.7 % (0.0-2.0); EOS # 0.3 K/uL (0.0-0.7); EOS % 2.7 % (0.0-4.0); HEMOGLOBIN 7.9 g/dL (11.0-16.0); LYMPH # 1.6 K/uL (1.0-4.3); LYMPH % 14.8 % (20.0-40.0); MEAN CELL VOLUME 79.4 fL (81.0-99.0); MEAN CORPUSCULAR HEMOGLOBIN 26.8 pg (27.0-31.0); MEAN CORPUSCULAR HGB CONC 33.7 g/dL (33.0-37.0); MEAN PLATELET VOLUME 7.3 fL (7.2-11.7); MONO % 9.2 % (0.0-10.0); NEUT # 7.8 K/uL (1.8-7.0); NEUT % 72.6 % (50.0-75.0); RBC 2.96 Mil/uL (3.80-5.20); RED CELL DISTRIBUTION WIDTH 15.8 % (11.5-14.5); WHITE BLOOD COUNT 10.8 K/uL (4.8-10.8)
--- NOTE | 2018-01-11 07:55 | CP.PCM.PN ---
Subjective - Date & Time of Evaluation Date of Evaluation: 01/11/18 Time of Evaluation: 07:00 - Subjective Subjective: General surgery progress note for Dr. Shah-Shannon Murray, PGY-2 Pt S & E at bedside at 0700 Pt resting comfortably in bed. Reports abdominal pain well controlled. Denies N & V, F & C, flatus or BM, chest pain, SOB, leg pain. Ostomy -140cc bilious output since placement JEANNE with 80 cc bilious output/12hrs Objective - Vital Signs/Intake and Output Vital Signs (last 24 hours): Temp Pulse Resp BP Pulse Ox 98.5 F 98 H 20 112/73 96 01/11/18 00:00 01/11/18 00:00 01/11/18 00:00 01/11/18 00:00 01/11/18 00:00 Intake and Output: 01/11/18 01/11/18 06:59 18:59 Intake Total 1150 Output Total 300 Balance 850 - Medications Medications: Current Medications Bupropion HCl (Wellbutrin Sr 150 Mg) 150 mg PO DAILY [facility] Last Admin: 01/10/18 11:59 Dose: 150 mg Clonazepam (Klonopin) 1 mg PO HS [facility] Last Admin: 01/10/18 21:33 Dose: 1 mg Cyclobenzaprine HCl (Flexeril) 5 mg PO DAILY PRN PRN Reason: Pain, moderate (4-7) Enoxaparin Sodium (Lovenox) 100 mg SC Q12 [facility] Last Admin: 01/10/18 21:33 Dose: 100 mg Ergocalciferol (Drisdol 50,000 Intl Units Cap) 1 cap PO QWK [facility] Last Admin: 01/10/18 11:58 Dose: 1 cap Hydrochlorothiazide (Hydrodiuril) 25 mg PO DAILY [facility] Last Admin: 01/10/18 12:01 Dose: Not Given Hydromorphone HCl (Dilaudid) 0.5 mg IVP Q4H PRN PRN Reason: post-op pain Last Admin: 01/11/18 01:53 Dose: 0.5 mg Piperacillin Sod/Tazobactam Sod (Zosyn 3.375 Gm Iv Premix) 3.375 gm in 50 mls @ 200 mls/hr IVPB Q6H STEPHANIE PRN Reason: Protocol Last Admin: 01/11/18 05:56 Dose: 200 mls/hr Potassium Chloride/Dextrose/Sod Cl (Potassium Chl 20 Meq In D5-1/2ns) 1,000 mls @ 150 mls/hr IV .Q6H40M [facility] Last Admin: 01/11/18 07:25 Dose: 150 mls/hr Lisinopril (Zestril) 40 mg PO DAILY [facility] Last Admin: 01/10/18 12:09 Dose: Not Given Olanzapine (Zyprexa) 5 mg PO DAILY [facility] Last Admin: 01/10/18 12:00 Dose: 5 mg Ondansetron HCl (Zofran Inj) 4 mg IVP Q6 PRN PRN Reason: Nausea/Vomiting Pantoprazole Sodium (Protonix Inj) 40 mg IVP DAILY [facility] Last Admin: 01/10/18 09:56 Dose: 40 mg Rosuvastatin Calcium (Crestor) 10 mg PO HS [facility] Last Admin: 01/10/18 21:33 Dose: 10 mg - Labs Labs: 01/10/18 07:43 01/10/18 07:43 PT 14.2 SECONDS (9.7-12.2) H 01/10/18 07:43 INR 1.3 01/10/18 07:43 APTT 26 SECONDS (21-34) 01/10/18 07:43 - Constitutional Appears: Non-toxic, No Acute Distress - Head Exam Head Exam: ATRAUMATIC, NORMAL INSPECTION, NORMOCEPHALIC - Eye Exam Eye Exam: EOMI, Normal appearance - ENT Exam ENT Exam: Mucous Membranes Moist, Normal Exam - Neck Exam Neck Exam: Full ROM, Normal Inspection - Respiratory Exam Respiratory Exam: NORMAL BREATHING PATTERN - Cardiovascular Exam Cardiovascular Exam: REGULAR RHYTHM, +S1, +S2 - GI/Abdominal Exam GI & Abdominal Exam: Soft, Tenderness (mild, over surgical incision sites). absent: Distended, Firm, Guarding Additional comments: ostomy bag in place with dark bilious output JEANNE drain in place with dark bilious output Dressing to midline incision -clean/dry/intact - Extremities Exam Extremities Exam: Normal Inspection, Pedal Edema (mild, bilateral). 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 Pablo Murray, PGY-2
[2018-01-11 08:21] LABS: ALB/GLOB RATIO 0.8 (1.0-2.1); ALBUMIN 2.7 g/dL (3.5-5.0); ALT/SGPT 29 U/L (9-52); AST/SGOT 25 U/L (14-36); BLOOD UREA NITROGEN 5 mg/dL (7-17); CALCIUM 7.9 mg/dl (8.6-10.4); GFR NON-AFRICAN AMERICAN > 60
[2018-01-11] MEDS ORDERED: Potassium Chloride 20 mEq ER Tab PO ONE ×2 (09:00→11:00)
[2018-01-11] MEDS: Enoxaparin 100 mg Syringe SC SCH ×2 (09:15→21:27)
[2018-01-11] MEDS: buPROPion SR 150 MG TABLET PO SCH (09:16)
[2018-01-11] MEDS: oxyCODONE 5 mg Immediate Release Tab PO PRN ×2 (16:35→23:00)
--- NOTE | 2018-01-12 03:43 | OP ---
PROCEDURE DATE: 01/09/2018 SURGEON: Renea Shah MD ROAD HOGGER OPERATOR: Dr. Emmanuel and Dr. Wise. ANESTHESIA: General. PREOPERATIVE DIAGNOSES: Intraabdominal collection and intracutaneous fistula, status post mesh hernia repair. POSTOPERATIVE DIAGNOSES: Intraabdominal collection and intracutaneous fistula, status post mesh hernia repair. PROCEDURE: Removal of abdominal wall mesh and fibrin sealant and drainage to enteric fistula. DESCRIPTION OF OPERATION: With the patient in the supine position under adequate general anesthesia, the abdomen was prepped and draped in the usual sterile manner. The patient had an incision noted to the upper abdomen with some swelling noted to the mid to lower portion of the incision and this incision was reopened in the midline. The fascia was closed beneath the cutaneous incision and this was also incised and beneath the fascia there was a large collection noted of green-colored fluid consistent with enteric content mixed with oral CT scan contrast. This was suctioned and exploration of the area revealed that it was lying above the recently placed Ventrio hernia patch, which was sutured circumferentially beneath the fascial edges. The inner portion of the mesh was elevated and incised allowing entry into the peritoneal cavity and the inner cortex of the surface of the mesh was noted to separate easily from the underlying bowel and with gentle traction on the rim of the mesh the entire mesh was freed from the attachment to the abdominal wall and the entire mesh was removed. When this had been completed, it was noted that the anterior surface of the peritoneal contents was matted with granulation tissue and a single of mucosal fistula opening was identified in the left lower portion of the wound. This had been identified previously on CT scan and was noted to be a long narrow fistula from a bowel loops possibly that had got trapped beneath the edge of the mesh and there was no distal obstruction noted. As the patient's previous surgery was within a month, it was felt that additional attempt at exploration would be difficult and most likely cause additional bowel injury, and therefore an attempt was made to control the fistula with 4 mL of fibrin sealant, which were placed into and around the area of the fistula. When this had been completed, a 1-inch Roberto drain was placed adjacent to the area of the fistula and brought out through a stab incision to the left of the main incision. A Bobby-Connor drain, a perforated flat was also placed in the upper portion of the peritoneal layer and brought out also to the left above the area of the [place] and this was attached to suction. The fascial layer was then re-approximated over the two drains and the peritoneal contents and this was performed with interrupted sutures of 0 Novafil and the skin was closed with nilson. Dry sterile dressings were applied as well as dressing to the various drains. The patient tolerated the procedure well and transferred to the recovery room in stable condition. Estimated blood loss for the procedure was 10 mL. Renea Shah MD
[2018-01-12] MEDS: Piperacill/Tazo 3.375gm in Dex 3.375 GM/50 ML BAG IVPB SCH ×4 (06:11→23:41)
[2018-01-12] MEDS: Potassium Ch 20mEq in D5-1/2NS 1,000 ML IV SCH ×2 (06:11→21:03)
--- NOTE | 2018-01-12 07:43 | CP.PCM.PN ---
Subjective - Date & Time of Evaluation Date of Evaluation: 01/12/18 Time of Evaluation: 07:39 - Subjective Subjective: General surgery progress note for Dr. Shah-Shannon Murray, PGY-2 Pt S & E at bedside at 0700 pt reports ab pain well controlled. Having flatus. Tolerating CLD. Denies N & V , F & C, BM, LE pain. ostomy- 150 cc/24H JEANNE - 200 cc/24H Objective - Vital Signs/Intake and Output Vital Signs (last 24 hours): Temp Pulse Resp BP Pulse Ox 99.5 F 99 H 20 121/82 97 01/11/18 15:00 01/11/18 15:00 01/11/18 15:00 01/11/18 15:00 01/11/18 15:00 Intake and Output: 01/12/18 01/12/18 06:59 18:59 Output Total 160 Balance -160 - Medications Medications: Current Medications Acetaminophen (Tylenol 325mg Tab) 650 mg PO Q6 PRN PRN Reason: Pain, Mild (1-3) Bupropion HCl (Wellbutrin Sr 150 Mg) 150 mg PO DAILY [facility] Last Admin: 01/11/18 09:16 Dose: 150 mg Clonazepam (Klonopin) 1 mg PO HS [facility] Last Admin: 01/11/18 21:27 Dose: 1 mg Cyclobenzaprine HCl (Flexeril) 5 mg PO DAILY PRN PRN Reason: Pain, moderate (4-7) Enoxaparin Sodium (Lovenox) 100 mg SC Q12 [facility] Last Admin: 01/11/18 21:27 Dose: 100 mg Ergocalciferol (Drisdol 50,000 Intl Units Cap) 1 cap PO QWK [facility] Last Admin: 01/10/18 11:58 Dose: 1 cap Hydrochlorothiazide (Hydrodiuril) 25 mg PO DAILY [facility] Last Admin: 01/11/18 10:00 Dose: Not Given Piperacillin Sod/Tazobactam Sod (Zosyn 3.375 Gm Iv Premix) 3.375 gm in 50 mls @ 200 mls/hr IVPB Q6H STEPHANIE PRN Reason: Protocol Last Admin: 01/12/18 06:11 Dose: 200 mls/hr Potassium Chloride/Dextrose/Sod Cl (Potassium Chl 20 Meq In D5-1/2ns) 1,000 mls @ 75 mls/hr IV .[id number] [facility] Last Admin: 01/12/18 06:11 Dose: 75 mls/hr Lisinopril (Zestril) 40 mg PO DAILY [facility] Last Admin: 01/11/18 10:00 Dose: Not Given Olanzapine (Zyprexa) 5 mg PO DAILY [facility] Last Admin: 01/11/18 09:16 Dose: 5 mg Ondansetron HCl (Zofran Inj) 4 mg IVP Q6 PRN PRN Reason: Nausea/Vomiting Oxycodone HCl (Oxycodone Immediate Release Tab) 5 mg PO Q6 PRN PRN Reason: Pain, moderate (4-7) Last Admin: 01/11/18 23:00 Dose: 5 mg Pantoprazole Sodium (Protonix Inj) 40 mg IVP DAILY [facility] Last Admin: 01/11/18 09:15 Dose: 40 mg Rosuvastatin Calcium (Crestor) 10 mg PO HS [facility] Last Admin: 01/11/18 21:27 Dose: 10 mg - Labs Labs: 01/11/18 07:39 01/11/18 07:39 PT 14.2 SECONDS (9.7-12.2) H 01/10/18 07:43 INR 1.3 01/10/18 07:43 APTT 26 SECONDS (21-34) 01/10/18 07:43 - Constitutional Appears: Non-toxic, No Acute Distress - Head Exam Head Exam: ATRAUMATIC, NORMAL INSPECTION, NORMOCEPHALIC - Eye Exam Eye Exam: EOMI, Normal appearance - ENT Exam ENT Exam: Mucous Membranes Moist, Normal Exam - Neck Exam Neck Exam: Full ROM, Normal Inspection - Respiratory Exam Respiratory Exam: NORMAL BREATHING PATTERN - Cardiovascular Exam Cardiovascular Exam: REGULAR RHYTHM, +S1, +S2 - GI/Abdominal Exam GI & Abdominal Exam: Soft, Tenderness (mild, over surgical site). 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 Pablo Murray, PGY-2
[2018-01-12 08:00] LABS: BASO # 0.1 K/uL (0.0-0.2); BASO % 0.7 % (0.0-2.0); EOS # 0.3 K/uL (0.0-0.7); EOS % 3.3 % (0.0-4.0); LYMPH # 1.6 K/uL (1.0-4.3); MEAN CELL VOLUME 79.1 fL (81.0-99.0); MEAN CORPUSCULAR HEMOGLOBIN 26.3 pg (27.0-31.0); MEAN CORPUSCULAR HGB CONC 33.3 g/dL (33.0-37.0); MEAN PLATELET VOLUME 7.3 fL (7.2-11.7); MONO # 0.8 K/uL (0.0-0.8); MONO % 9.4 % (0.0-10.0); NEUT % 68.6 % (50.0-75.0); RBC 3.44 Mil/uL (3.80-5.20); RED CELL DISTRIBUTION WIDTH 15.4 % (11.5-14.5); WHITE BLOOD COUNT 8.7 K/uL (4.8-10.8)
[2018-01-12 08:12] LABS: ALB/GLOB RATIO 0.8 (1.0-2.1); ALBUMIN 2.9 g/dL (3.5-5.0); ALT/SGPT 27 U/L (9-52); AST/SGOT 29 U/L (14-36); BLOOD UREA NITROGEN 2 mg/dL (7-17); CALCIUM 8.3 mg/dl (8.6-10.4); GFR NON-AFRICAN AMERICAN > 60
[2018-01-12] MEDS: buPROPion SR 150 MG TABLET PO SCH (09:28)
[2018-01-12] MEDS: oxyCODONE 5 mg Immediate Release Tab PO PRN ×2 (09:29→17:15)
[2018-01-12] MEDS: Enoxaparin 100 mg Syringe SC SCH ×2 (09:30→21:03)
[2018-01-13] MEDS: oxyCODONE 5 mg Immediate Release Tab PO PRN ×2 (02:26→18:11)
[2018-01-13] MEDS: Piperacill/Tazo 3.375gm in Dex 3.375 GM/50 ML BAG IVPB SCH ×4 (05:25→23:44)
[2018-01-13 07:16] LABS: BASO % 0.6 % (0.0-2.0); EOS # 0.3 K/uL (0.0-0.7); EOS % 3.8 % (0.0-4.0); HEMOGLOBIN 8.8 g/dL (11.0-16.0); LYMPH # 1.5 K/uL (1.0-4.3); LYMPH % 18.3 % (20.0-40.0); MEAN CELL VOLUME 79.7 fL (81.0-99.0); MEAN CORPUSCULAR HGB CONC 33.9 g/dL (33.0-37.0); MEAN PLATELET VOLUME 7.4 fL (7.2-11.7); MONO # 0.7 K/uL (0.0-0.8); MONO % 8.4 % (0.0-10.0); NEUT # 5.7 K/uL (1.8-7.0); NEUT % 68.9 % (50.0-75.0); RBC 3.26 Mil/uL (3.80-5.20); RED CELL DISTRIBUTION WIDTH 15.6 % (11.5-14.5); WHITE BLOOD COUNT 8.2 K/uL (4.8-10.8)
[2018-01-13 08:15] LABS: ALB/GLOB RATIO 0.8 (1.0-2.1); ALBUMIN 2.8 g/dL (3.5-5.0); ALT/SGPT 24 U/L (9-52); AST/SGOT 17 U/L (14-36); BLOOD UREA NITROGEN < 2 mg/dL (7-17); CALCIUM 8.2 mg/dl (8.6-10.4); GFR NON-AFRICAN AMERICAN > 60
--- NOTE | 2018-01-13 08:16 | CP.PCM.PN ---
Subjective - Date & Time of Evaluation Date of Evaluation: 01/13/18 Time of Evaluation: 08:12 - Subjective Subjective: Surgery PT seen and examined. No acute events. Tolerating CLD. Having BM. Dressing changed this AM. Less output. Objective - Vital Signs/Intake and Output Vital Signs (last 24 hours): Temp Pulse Resp BP Pulse Ox 98.2 F 79 20 121/80 98 01/12/18 23:45 01/12/18 23:45 01/12/18 23:45 01/12/18 23:45 01/12/18 23:45 Intake and Output: 01/13/18 01/13/18 06:59 18:59 Intake Total 1778 Output Total 2075 Balance -297 - Medications Medications: Current Medications Acetaminophen (Tylenol 325mg Tab) 650 mg PO Q6 PRN PRN Reason: Pain, Mild (1-3) Bupropion HCl (Wellbutrin Sr 150 Mg) 150 mg PO DAILY [facility] Last Admin: 01/12/18 09:28 Dose: 150 mg Clonazepam (Klonopin) 1 mg PO HS [facility] Last Admin: 01/12/18 21:02 Dose: 1 mg Cyclobenzaprine HCl (Flexeril) 5 mg PO DAILY PRN PRN Reason: Pain, moderate (4-7) Enoxaparin Sodium (Lovenox) 100 mg SC Q12 [facility] Last Admin: 01/12/18 21:03 Dose: 100 mg Ergocalciferol (Drisdol 50,000 Intl Units Cap) 1 cap PO QWK [facility] Last Admin: 01/10/18 11:58 Dose: 1 cap Hydrochlorothiazide (Hydrodiuril) 25 mg PO DAILY [facility] Last Admin: 01/12/18 09:33 Dose: Not Given Piperacillin Sod/Tazobactam Sod (Zosyn 3.375 Gm Iv Premix) 3.375 gm in 50 mls @ 200 mls/hr IVPB Q6H [facility] PRN Reason: Protocol Last Admin: 01/13/18 05:25 Dose: 200 mls/hr Potassium Chloride/Dextrose/Sod Cl (Potassium Chl 20 Meq In D5-1/2ns) 1,000 mls @ 75 mls/hr IV .[id number] [facility] Last Admin: 01/12/18 21:03 Dose: 75 mls/hr Lisinopril (Zestril) 40 mg PO DAILY [facility] Last Admin: 01/12/18 09:34 Dose: Not Given Olanzapine (Zyprexa) 5 mg PO DAILY [facility] Last Admin: 01/12/18 09:28 Dose: 5 mg Ondansetron HCl (Zofran Inj) 4 mg IVP Q6 PRN PRN Reason: Nausea/Vomiting Oxycodone HCl (Oxycodone Immediate Release Tab) 5 mg PO Q6 PRN PRN Reason: Pain, moderate (4-7) Last Admin: 01/13/18 02:26 Dose: 5 mg Pantoprazole Sodium (Protonix Inj) 40 mg IVP DAILY [facility] Last Admin: 01/12/18 09:27 Dose: 40 mg Rosuvastatin Calcium (Crestor) 10 mg PO [facility] Last Admin: 01/12/18 21:02 Dose: 10 mg - Labs Labs: 01/13/18 06:56 01/12/18 07:49 PT 14.2 SECONDS (9.7-12.2) H 01/10/18 07:43 INR 1.3 01/10/18 07:43 APTT 26 SECONDS (21-34) 01/10/18 07:43 - Constitutional Appears: No Acute Distress - Head Exam Head Exam: ATRAUMATIC, NORMAL INSPECTION, NORMOCEPHALIC - Eye Exam Eye Exam: EOMI, Normal appearance, PERRL Pupil Exam: NORMAL ACCOMODATION, PERRL - ENT Exam ENT Exam: Mucous Membranes Moist, Normal Exam - Neck Exam Neck Exam: Full ROM, Normal Inspection. absent: Lymphadenopathy - Respiratory Exam Respiratory Exam: NORMAL BREATHING PATTERN - Cardiovascular Exam Cardiovascular Exam: REGULAR RHYTHM, +S1, +S2. absent: Murmur - GI/Abdominal Exam GI & Abdominal Exam: Soft, Tenderness. absent: Distended, Firm, Rigid Additional comments: Drain serobilious 50cc/24hrs Roberto bilious 75cc/24hrs. 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 Shah
[2018-01-13] MEDS: buPROPion SR 150 MG TABLET PO SCH (09:40)
[2018-01-13] MEDS: Enoxaparin 100 mg Syringe SC SCH ×2 (09:40→21:36)
[2018-01-13] MEDS: Potassium Ch 20mEq in D5-1/2NS 1,000 ML IV SCH (21:35)
[2018-01-14] MEDS: oxyCODONE 5 mg Immediate Release Tab PO PRN ×2 (02:03→09:22)
[2018-01-14] MEDS: Piperacill/Tazo 3.375gm in Dex 3.375 GM/50 ML BAG IVPB SCH ×3 (05:03→17:54)
[2018-01-14 07:46] LABS: BASO # 0.1 K/uL (0.0-0.2); BASO % 1.1 % (0.0-2.0); EOS # 0.2 K/uL (0.0-0.7); EOS % 2.4 % (0.0-4.0); HEMOGLOBIN 9.4 g/dL (11.0-16.0); LYMPH % 21.2 % (20.0-40.0); MEAN CELL VOLUME 79.6 fL (81.0-99.0); MEAN CORPUSCULAR HGB CONC 32.7 g/dL (33.0-37.0); MEAN PLATELET VOLUME 7.6 fL (7.2-11.7); MONO # 0.7 K/uL (0.0-0.8); MONO % 7.8 % (0.0-10.0); NEUT # 6.4 K/uL (1.8-7.0); NEUT % 67.5 % (50.0-75.0); RBC 3.61 Mil/uL (3.80-5.20); RED CELL DISTRIBUTION WIDTH 15.9 % (11.5-14.5); WHITE BLOOD COUNT 9.5 K/uL (4.8-10.8)
[2018-01-14 07:49] LABS: ALB/GLOB RATIO 0.8 (1.0-2.1); ALBUMIN 3.2 g/dL (3.5-5.0); ALT/SGPT 26 U/L (9-52); AST/SGOT 28 U/L (14-36); BLOOD UREA NITROGEN 2 mg/dL (7-17); CALCIUM 8.5 mg/dl (8.6-10.4); GFR NON-AFRICAN AMERICAN > 60
[2018-01-14] MEDS: Pantoprazole 40 mg EC Tab PO SCH (09:21)
[2018-01-14] MEDS: buPROPion SR 150 MG TABLET PO SCH (09:21)
[2018-01-14] MEDS: Enoxaparin 100 mg Syringe SC SCH ×2 (09:22→21:57)
--- NOTE | 2018-01-14 12:44 | CP.PCM.PN ---
Subjective - Date & Time of Evaluation Date of Evaluation: 01/14/18 Time of Evaluation: 12:41 - Subjective Subjective: Surgery Pt seen and examined. No acute events. Dressing changed this AM. Tolerating regular diet. Having BM. Pain controlled. Denies fever, nausea, vomiting. Objective - Vital Signs/Intake and Output Vital Signs (last 24 hours): Temp Pulse Resp BP Pulse Ox 98.5 F 88 20 119/82 100 01/14/18 07:00 01/14/18 07:00 01/14/18 07:00 01/14/18 07:00 01/14/18 07:00 Intake and Output: 01/14/18 01/14/18 06:59 18:59 Intake Total 1750 Output Total 710 Balance 1040 - Medications Medications: Current Medications Acetaminophen (Tylenol 325mg Tab) 650 mg PO Q6 PRN PRN Reason: Pain, Mild (1-3) Bupropion HCl (Wellbutrin Sr 150 Mg) 150 mg PO DAILY [facility] Last Admin: 01/14/18 09:21 Dose: 150 mg Clonazepam (Klonopin) 1 mg PO HS [facility] Last Admin: 01/13/18 21:35 Dose: 1 mg Cyclobenzaprine HCl (Flexeril) 5 mg PO DAILY PRN PRN Reason: Pain, moderate (4-7) Last Admin: 01/13/18 09:44 Dose: 5 mg Enoxaparin Sodium (Lovenox) 100 mg SC Q12 [facility] Last Admin: 01/14/18 09:22 Dose: 100 mg Ergocalciferol (Drisdol 50,000 Intl Units Cap) 1 cap PO QWK [facility] Last Admin: 01/10/18 11:58 Dose: 1 cap Hydrochlorothiazide (Hydrodiuril) 25 mg PO DAILY [facility] Last Admin: 01/14/18 09:21 Dose: 25 mg Piperacillin Sod/Tazobactam Sod (Zosyn 3.375 Gm Iv Premix) 3.375 gm in 50 mls @ 200 mls/hr IVPB Q6H [facility] PRN Reason: Protocol Last Admin: 01/14/18 11:40 Dose: 200 mls/hr Potassium Chloride/Dextrose/Sod Cl (Potassium Chl 20 Meq In D5-1/2ns) 1,000 mls @ 75 mls/hr IV .[id number] [facility] Last Admin: 01/13/18 21:35 Dose: 75 mls/hr Lisinopril (Zestril) 40 mg PO DAILY [facility] Last Admin: 01/14/18 09:22 Dose: Not Given Olanzapine (Zyprexa) 5 mg PO DAILY [facility] Last Admin: 01/14/18 09:21 Dose: 5 mg Ondansetron HCl (Zofran Inj) 4 mg IVP Q6 PRN PRN Reason: Nausea/Vomiting Oxycodone HCl (Oxycodone Immediate Release Tab) 5 mg PO Q6 PRN PRN Reason: Pain, moderate (4-7) Last Admin: 01/14/18 09:22 Dose: 5 mg Pantoprazole Sodium (Protonix Ec Tab) 40 mg PO DAILY [facility] Last Admin: 01/14/18 09:21 Dose: 40 mg Rosuvastatin Calcium (Crestor) 10 mg PO HS [facility] Last Admin: 01/13/18 21:34 Dose: 10 mg - Labs Labs: 01/14/18 07:25 01/14/18 07:25 PT 14.2 SECONDS (9.7-12.2) H 01/10/18 07:43 INR 1.3 01/10/18 07:43 APTT 26 SECONDS (21-34) 01/10/18 07:43 - Constitutional Appears: No Acute Distress - Head Exam Head Exam: ATRAUMATIC, NORMAL INSPECTION, NORMOCEPHALIC - Eye Exam Eye Exam: EOMI, Normal appearance, PERRL Pupil Exam: NORMAL ACCOMODATION, PERRL - ENT Exam ENT Exam: Mucous Membranes Moist - Neck Exam Neck Exam: Full ROM, Normal Inspection. absent: Lymphadenopathy - Respiratory Exam Respiratory Exam: NORMAL BREATHING PATTERN - Cardiovascular Exam Cardiovascular Exam: REGULAR RHYTHM - GI/Abdominal Exam GI & Abdominal Exam: Soft, Tenderness. absent: Distended, Firm, Guarding, Rigid Additional comments: Drain in place serobilious output 50cc/24hrs. [place] bilious output 50cc/ 24hrs. [place] has nilson. Draining biliuous fluids. Dressing saturated. - Extremities Exam Extremities Exam: Full ROM, Normal Capillary Refill, Normal Inspection. absent : Joint Swelling, Pedal Edema - Back Exam Back Exam: NORMAL INSPECTION - Neurological Exam Neurological Exam: Alert, Awake, CN II-XII Intact, Normal Gait, Oriented x3 - Psychiatric Exam Psychiatric exam: Normal Affect, Normal Mood - Skin Skin Exam: Erythema, Warm. 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
[2018-01-14] MEDS: Potassium Ch 20mEq in D5-1/2NS 1,000 ML IV SCH (13:00)
[2018-01-15] MEDS: oxyCODONE 5 mg Immediate Release Tab PO PRN ×2 (05:26→14:31)
[2018-01-15] MEDS: Pantoprazole 40 mg EC Tab PO SCH (09:05)
[2018-01-15] MEDS: Enoxaparin 100 mg Syringe SC SCH ×2 (09:06→21:44)
[2018-01-15] MEDS: buPROPion SR 150 MG TABLET PO SCH (09:07)
--- NOTE | 2018-01-15 17:24 | CP.PCM.PN ---
Subjective - Date & Time of Evaluation Date of Evaluation: 01/15/18 Time of Evaluation: 17:21 - Subjective Subjective: Gen Surg: Dr Shah Pt S&E. NAEO. Resting comfortably. Tolerating diet. Having BMs. Still having increased drainage from midline. Denies f/c, n/v, sob or chest pain. Objective - Vital Signs/Intake and Output Vital Signs (last 24 hours): Temp Pulse Resp BP Pulse Ox 99.0 F 97 H 20 110/71 97 01/15/18 15:00 01/15/18 15:00 01/15/18 15:00 01/15/18 15:00 01/15/18 15:00 Intake and Output: 01/15/18 01/15/18 06:59 18:59 Intake Total 1350 Output Total 110 Balance 1240 - Medications Medications: Current Medications Acetaminophen (Tylenol 325mg Tab) 650 mg PO Q6 PRN PRN Reason: Pain, Mild (1-3) Bupropion HCl (Wellbutrin Sr 150 Mg) 150 mg PO DAILY [facility] Last Admin: 01/15/18 09:07 Dose: 150 mg Clonazepam (Klonopin) 1 mg PO HS [facility] Last Admin: 01/14/18 21:55 Dose: 1 mg Cyclobenzaprine HCl (Flexeril) 5 mg PO DAILY PRN PRN Reason: Pain, moderate (4-7) Last Admin: 01/15/18 09:07 Dose: 5 mg Enoxaparin Sodium (Lovenox) 100 mg SC Q12 [facility] Last Admin: 01/15/18 09:06 Dose: 100 mg Ergocalciferol (Drisdol 50,000 Intl Units Cap) 1 cap PO QWK [facility] Last Admin: 01/10/18 11:58 Dose: 1 cap Hydrochlorothiazide (Hydrodiuril) 25 mg PO DAILY [facility] Last Admin: 01/15/18 10:00 Dose: Not Given Lisinopril (Zestril) 40 mg PO DAILY [facility] Last Admin: 01/15/18 09:06 Dose: Not Given Olanzapine (Zyprexa) 5 mg PO DAILY [facility] Last Admin: 01/15/18 09:07 Dose: 5 mg Ondansetron HCl (Zofran Inj) 4 mg IVP Q6 PRN PRN Reason: Nausea/Vomiting Pantoprazole Sodium (Protonix Ec Tab) 40 mg PO DAILY [facility] Last Admin: 01/15/18 09:05 Dose: 40 mg Rosuvastatin Calcium (Crestor) 10 mg PO HS [facility] Last Admin: 01/14/18 21:56 Dose: 10 mg - Labs Labs: 01/14/18 07:25 01/14/18 07:25 PT 14.2 SECONDS (9.7-12.2) H 01/10/18 07:43 INR 1.3 01/10/18 07:43 APTT 26 SECONDS (21-34) 01/10/18 07:43 - Constitutional Appears: Non-toxic, No Acute Distress - Head Exam Head Exam: NORMAL INSPECTION - ENT Exam ENT Exam: Mucous Membranes Moist - Respiratory Exam Respiratory Exam: absent: Respiratory Distress - Cardiovascular Exam Cardiovascular Exam: REGULAR RHYTHM. absent: Tachycardia - GI/Abdominal Exam GI & Abdominal Exam: Soft. absent: Distended, Tenderness Additional comments: midline with enteric drainage Assessment and Plan - Assessment and Plan (Free Text) Assessment: 58F s/p explantation of mesh, now with ECF Plan: will place wound vac today will begin d/c planning moving forward d/w Dr Pablo Latif, PGY4
[2018-01-16] MEDS: buPROPion SR 150 MG TABLET PO SCH (10:02)
[2018-01-16] MEDS: Enoxaparin 100 mg Syringe SC SCH ×2 (10:02→21:11)
--- NOTE | 2018-01-17 09:02 | CP.PCM.PN ---
Subjective - Date & Time of Evaluation Date of Evaluation: 01/17/18 Time of Evaluation: 08:59 - Subjective Subjective: General Surgery: Dr Shah Pt S&E. [place]. Tolerating diet. Having BMs. Wound vac developed leaking yesterday. Replaced this AM. Still with enteric drainage. Objective - Vital Signs/Intake and Output Vital Signs (last 24 hours): Temp Pulse Resp BP Pulse Ox 98.4 F 86 20 108/75 97 01/17/18 07:26 01/17/18 07:26 01/17/18 07:26 01/17/18 07:26 01/17/18 07:26 Intake and Output: 01/17/18 01/17/18 06:59 18:59 Intake Total 250 Output Total 315 Balance -65 - Medications Medications: Current Medications Acetaminophen (Tylenol 325mg Tab) 650 mg PO Q6 PRN PRN Reason: Pain, Mild (1-3) Last Admin: 01/16/18 07:09 Dose: 650 mg Bupropion HCl (Wellbutrin Sr 150 Mg) 150 mg PO DAILY [facility] Last Admin: 01/16/18 10:02 Dose: 150 mg Clonazepam (Klonopin) 1 mg PO HS [facility] Last Admin: 01/16/18 21:12 Dose: 1 mg Cyclobenzaprine HCl (Flexeril) 5 mg PO DAILY PRN PRN Reason: Pain, moderate (4-7) Last Admin: 01/16/18 19:02 Dose: 5 mg Enoxaparin Sodium (Lovenox) 100 mg SC Q12 [facility] Last Admin: 01/16/18 21:11 Dose: 100 mg Ergocalciferol (Drisdol 50,000 Intl Units Cap) 1 cap PO QWK [facility] Last Admin: 01/10/18 11:58 Dose: 1 cap Hydrochlorothiazide (Hydrodiuril) 25 mg PO DAILY [facility] Last Admin: 01/16/18 10:02 Dose: Not Given Lisinopril (Zestril) 40 mg PO DAILY [facility] Last Admin: 01/16/18 10:03 Dose: Not Given Olanzapine (Zyprexa) 5 mg PO DAILY [facility] Last Admin: 01/16/18 10:02 Dose: 5 mg Rosuvastatin Calcium (Crestor) 10 mg PO HS [facility] Last Admin: 01/16/18 21:12 Dose: 10 mg - Labs Labs: 01/14/18 07:25 01/14/18 07:25 PT 14.2 SECONDS (9.7-12.2) H 01/10/18 07:43 INR 1.3 01/10/18 07:43 APTT 26 SECONDS (21-34) 01/10/18 07:43 - Constitutional Appears: Non-toxic, No Acute Distress - ENT Exam ENT Exam: Mucous Membranes Moist - Respiratory Exam Respiratory Exam: absent: Respiratory Distress - Cardiovascular Exam Cardiovascular Exam: REGULAR RHYTHM. absent: Tachycardia - GI/Abdominal Exam GI & Abdominal Exam: Soft. absent: Distended, Firm, Tenderness Additional comments: midline incision with wound vac in place, no longer leaking, enteric output - Extremities Exam Extremities Exam: absent: Pedal Edema - Neurological Exam Neurological Exam: Alert, Awake, Oriented x3 - Psychiatric Exam Psychiatric exam: Normal Affect, Normal Mood - Skin Skin Exam: Normal Color, Warm Assessment and Plan - Assessment and Plan (Free Text) Assessment: 58M s/p explantation of mesh now with ECF Plan: cont reg diet wound vac to abdomen will monitor lytes and fluid balance no plan for D/C until fistula adequately controlled d/w Dr Pablo Latif, PGY4
--- NOTE | 2018-01-17 09:04 | CP.PCM.PN ---
Subjective - Date & Time of Evaluation Date of Evaluation: 01/16/18 Time of Evaluation: 06:35 - Subjective Subjective: Patient seen and examined. No acute events over night. Tolerating diet. 130cc/ 24hr bilious output into JEANNE drain. Objective - Vital Signs/Intake and Output Vital Signs (last 24 hours): Temp Pulse Resp BP Pulse Ox 98.4 F 86 20 108/75 97 01/17/18 07:26 01/17/18 07:26 01/17/18 07:26 01/17/18 07:26 01/17/18 07:26 Intake and Output: 01/17/18 01/17/18 06:59 18:59 Intake Total 250 Output Total 315 Balance -65 - Medications Medications: Current Medications Acetaminophen (Tylenol 325mg Tab) 650 mg PO Q6 PRN PRN Reason: Pain, Mild (1-3) Last Admin: 01/16/18 07:09 Dose: 650 mg Bupropion HCl (Wellbutrin Sr 150 Mg) 150 mg PO DAILY [facility] Last Admin: 01/16/18 10:02 Dose: 150 mg Clonazepam (Klonopin) 1 mg PO HS [facility] Last Admin: 01/16/18 21:12 Dose: 1 mg Cyclobenzaprine HCl (Flexeril) 5 mg PO DAILY PRN PRN Reason: Pain, moderate (4-7) Last Admin: 01/16/18 19:02 Dose: 5 mg Enoxaparin Sodium (Lovenox) 100 mg SC Q12 [facility] Last Admin: 01/16/18 21:11 Dose: 100 mg Ergocalciferol (Drisdol 50,000 Intl Units Cap) 1 cap PO QWK [facility] Last Admin: 01/10/18 11:58 Dose: 1 cap Hydrochlorothiazide (Hydrodiuril) 25 mg PO DAILY [facility] Last Admin: 01/16/18 10:02 Dose: Not Given Lisinopril (Zestril) 40 mg PO DAILY [facility] Last Admin: 01/16/18 10:03 Dose: Not Given Olanzapine (Zyprexa) 5 mg PO DAILY [facility] Last Admin: 01/16/18 10:02 Dose: 5 mg Rosuvastatin Calcium (Crestor) 10 mg PO HS [facility] Last Admin: 01/16/18 21:12 Dose: 10 mg - Labs Labs: 01/14/18 07:25 01/14/18 07:25 PT 14.2 SECONDS (9.7-12.2) H 01/10/18 07:43 INR 1.3 01/10/18 07:43 APTT 26 SECONDS (21-34) 01/10/18 07:43 - Constitutional Appears: No Acute Distress - Head Exam Head Exam: NORMOCEPHALIC - Eye Exam Eye Exam: Normal appearance - ENT Exam ENT Exam: Mucous Membranes Moist - Cardiovascular Exam Cardiovascular Exam: +S1, +S2 - GI/Abdominal Exam GI & Abdominal Exam: Soft Additional comments: +output from ventral incision into wound vac and JEANNE drain - Neurological Exam Neurological Exam: Alert, Awake, Oriented x3 - Psychiatric Exam Psychiatric exam: Normal Mood - Skin Skin Exam: Dry, Intact, Warm Assessment and Plan - Assessment and Plan (Free Text) Assessment: 58M s/p explantation of mesh now with ECF Plan: Regular diet wound vac change in AM Replete lytes prn d/w Dr Pablo Roche PGY3
[2018-01-17] MEDS: Enoxaparin 100 mg Syringe SC SCH ×2 (09:21→21:34)
[2018-01-17] MEDS: buPROPion SR 150 MG TABLET PO SCH (09:21)
[2018-01-17] MEDS: Ergocalciferol 50,000 Intl Units Cap PO SCH (10:00)
[2018-01-17] MEDS: Oxycodone/Acetaminophen 5/325 mg Tab PO PRN (14:16)
[2018-01-18] MEDS: Oxycodone/Acetaminophen 5/325 mg Tab PO PRN ×3 (06:00→22:01)
[2018-01-18 07:03] LABS: HEMOGLOBIN 9.3 g/dL (11.0-16.0); MEAN CELL VOLUME 81.2 fL (81.0-99.0); MEAN CORPUSCULAR HEMOGLOBIN 26.2 pg (27.0-31.0); MEAN CORPUSCULAR HGB CONC 32.2 g/dL (33.0-37.0); MEAN PLATELET VOLUME 7.7 fL (7.2-11.7); RBC 3.57 Mil/uL (3.80-5.20); RED CELL DISTRIBUTION WIDTH 16.1 % (11.5-14.5); WHITE BLOOD COUNT 5.8 K/uL (4.8-10.8)
[2018-01-18 07:23] LABS: BLOOD UREA NITROGEN 10 mg/dL (7-17); CALCIUM 8.7 mg/dl (8.6-10.4); GFR NON-AFRICAN AMERICAN > 60
--- NOTE | 2018-01-18 08:28 | CP.PCM.PN ---
Subjective - Date & Time of Evaluation Date of Evaluation: 01/18/18 Time of Evaluation: 08:26 - Subjective Subjective: Surgery Pt seen and examined. WOund vac has leakage. Reinforced. Denies fever, nausea. Drain in place. Objective - Vital Signs/Intake and Output Vital Signs (last 24 hours): Temp Pulse Resp BP Pulse Ox 98.1 F 86 20 134/75 98 01/18/18 07:41 01/18/18 07:41 01/18/18 07:41 01/18/18 07:41 01/18/18 07:41 Intake and Output: 01/18/18 01/18/18 06:59 18:59 Intake Total 350 Output Total 105 Balance 245 - Medications Medications: Current Medications Acetaminophen (Tylenol 325mg Tab) 650 mg PO Q6 PRN PRN Reason: Pain, Mild (1-3) Last Admin: 01/17/18 09:20 Dose: 650 mg Bupropion HCl (Wellbutrin Sr 150 Mg) 150 mg PO DAILY [facility] Last Admin: 01/17/18 09:21 Dose: 150 mg Clonazepam (Klonopin) 1 mg PO HS [facility] Last Admin: 01/17/18 21:34 Dose: 1 mg Cyclobenzaprine HCl (Flexeril) 5 mg PO DAILY PRN PRN Reason: Pain, moderate (4-7) Last Admin: 01/17/18 09:21 Dose: 5 mg Enoxaparin Sodium (Lovenox) 100 mg SC Q12 [facility] Last Admin: 01/17/18 21:34 Dose: 100 mg Ergocalciferol (Drisdol 50,000 Intl Units Cap) 1 cap PO QWK [facility] Last Admin: 01/17/18 10:00 Dose: 1 cap Hydrochlorothiazide (Hydrodiuril) 25 mg PO DAILY [facility] Last Admin: 01/17/18 09:42 Dose: Not Given Lisinopril (Zestril) 40 mg PO DAILY [facility] Last Admin: 01/17/18 09:21 Dose: Not Given Olanzapine (Zyprexa) 5 mg PO DAILY [facility] Last Admin: 01/17/18 10:00 Dose: 5 mg Oxycodone/Acetaminophen (Percocet 5/325 Mg Tab) 2 tab PO Q4H PRN PRN Reason: Pain, moderate (4-7) Stop: 01/20/18 09:57 Last Admin: 01/18/18 06:00 Dose: 2 tab Rosuvastatin Calcium (Crestor) 10 mg PO HS [facility] Last Admin: 01/17/18 21:38 Dose: 10 mg - Labs Labs: 01/18/18 06:55 01/18/18 06:55 PT 14.2 SECONDS (9.7-12.2) H 01/10/18 07:43 INR 1.3 01/10/18 07:43 APTT 26 SECONDS (21-34) 01/10/18 07:43 - Constitutional Appears: No Acute Distress - Head Exam Head Exam: ATRAUMATIC, NORMAL INSPECTION, NORMOCEPHALIC - Eye Exam Eye Exam: EOMI, Normal appearance, PERRL Pupil Exam: NORMAL ACCOMODATION, PERRL - ENT Exam ENT Exam: Mucous Membranes Moist, Normal Exam - Neck Exam Neck Exam: Full ROM, Normal Inspection. absent: Lymphadenopathy - Respiratory Exam Respiratory Exam: NORMAL BREATHING PATTERN - Cardiovascular Exam Cardiovascular Exam: REGULAR RHYTHM - GI/Abdominal Exam GI & Abdominal Exam: Soft, Tenderness. absent: Distended, Firm Additional comments: Wound vac in place: some leaking - Extremities Exam Extremities Exam: Full ROM, Normal Capillary Refill, Normal Inspection. absent : Joint Swelling, Pedal Edema - Back Exam Back Exam: NORMAL INSPECTION - Neurological Exam Neurological Exam: Alert, Awake, CN II-XII Intact, Normal Gait, Oriented x3 - Psychiatric Exam Psychiatric exam: Normal Affect, Normal Mood - Skin Skin Exam: Erythema, Warm. 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
[2018-01-18] MEDS: buPROPion SR 150 MG TABLET PO SCH (10:48)
[2018-01-18] MEDS: Enoxaparin 100 mg Syringe SC SCH ×2 (10:49→21:57)
[2018-01-19] MEDS: Oxycodone/Acetaminophen 5/325 mg Tab PO PRN ×3 (08:35→21:28)
[2018-01-19] MEDS: buPROPion SR 150 MG TABLET PO SCH (10:07)
[2018-01-19] MEDS: Enoxaparin 100 mg Syringe SC SCH ×2 (10:07→21:27)
--- NOTE | 2018-01-19 10:43 | CP.PCM.PN ---
Subjective - Date & Time of Evaluation Date of Evaluation: 01/19/18 Time of Evaluation: 06:35 - Subjective Subjective: Patient seen and examined. Tolerating diet. Having feculent output into abdominal wound vac. Complaining of constipation. Objective - Vital Signs/Intake and Output Vital Signs (last 24 hours): Temp Pulse Resp BP Pulse Ox 98.4 F 99 H 20 115/77 98 01/19/18 08:10 01/19/18 08:10 01/19/18 08:10 01/19/18 08:10 01/19/18 08:10 Intake and Output: 01/19/18 01/19/18 06:59 18:59 Intake Total 500 Output Total 60 Balance 440 - Medications Medications: Current Medications Acetaminophen (Tylenol 325mg Tab) 650 mg PO Q6 PRN PRN Reason: Pain, Mild (1-3) Last Admin: 01/17/18 09:20 Dose: 650 mg Bupropion HCl (Wellbutrin Sr 150 Mg) 150 mg PO DAILY [facility] Last Admin: 01/19/18 10:07 Dose: 150 mg Clonazepam (Klonopin) 1 mg PO HS [facility] Last Admin: 01/18/18 21:57 Dose: 1 mg Cyclobenzaprine HCl (Flexeril) 5 mg PO DAILY PRN PRN Reason: Pain, moderate (4-7) Last Admin: 01/17/18 09:21 Dose: 5 mg Enoxaparin Sodium (Lovenox) 100 mg SC Q12 [facility] Last Admin: 01/19/18 10:07 Dose: 100 mg Ergocalciferol (Drisdol 50,000 Intl Units Cap) 1 cap PO QWK [facility] Last Admin: 01/17/18 10:00 Dose: 1 cap Hydrochlorothiazide (Hydrodiuril) 25 mg PO DAILY [facility] Last Admin: 01/19/18 10:11 Dose: Not Given Lisinopril (Zestril) 40 mg PO DAILY [facility] Last Admin: 01/19/18 10:11 Dose: Not Given Olanzapine (Zyprexa) 5 mg PO DAILY [facility] Last Admin: 01/19/18 10:07 Dose: 5 mg Oxycodone/Acetaminophen (Percocet 5/325 Mg Tab) 2 tab PO Q4H PRN PRN Reason: Pain, moderate (4-7) Stop: 09/17/18 09:57 Last Admin: 01/19/18 08:35 Dose: 2 tab Polyethylene Glycol (Miralax) 17 gm PO DAILY [facility] Rosuvastatin Calcium (Crestor) 10 mg PO HS [facility] Last Admin: 01/18/18 22:01 Dose: 10 mg Senna/Docusate Sodium (Senokot S 50 Mg-8.6 Mg) 1 tab PO BID [facility] - Labs Labs: 01/18/18 06:55 01/18/18 06:55 PT 14.2 SECONDS (9.7-12.2) H 01/10/18 07:43 INR 1.3 01/10/18 07:43 APTT 26 SECONDS (21-34) 01/10/18 07:43 - Constitutional Appears: No Acute Distress - Head Exam Head Exam: NORMOCEPHALIC - Eye Exam Eye Exam: Normal appearance - ENT Exam ENT Exam: Mucous Membranes Moist - Respiratory Exam Respiratory Exam: NORMAL BREATHING PATTERN - Cardiovascular Exam Cardiovascular Exam: +S1, +S2 - GI/Abdominal Exam GI & Abdominal Exam: Soft - Neurological Exam Neurological Exam: Alert, Awake, Oriented x3 - Psychiatric Exam Psychiatric exam: Normal Mood - Skin Skin Exam: Dry, Intact, Warm Assessment and Plan - Assessment and Plan (Free Text) Assessment: 58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 Pablo Roche PGY3
[2018-01-19] MEDS: POLYETHYLENE GLYCOL 3350 17 GM/Dose PACKET PO SCH (12:20)
[2018-01-19] MEDS: Docusate-Senna 50 mg-8.6 mg Tab PO SCH ×2 (12:20→18:06)
--- NOTE | 2018-01-20 07:54 | CP.PCM.PN ---
Subjective - Date & Time of Evaluation Date of Evaluation: 01/20/18 Time of Evaluation: 07:52 - Subjective Subjective: Surgery Pt seen and examined. No acute events. Having BM. Tolerating diet. WOund vac changed over the weekend. No Leak. Objective - Vital Signs/Intake and Output Vital Signs (last 24 hours): Temp Pulse Resp BP Pulse Ox 98.2 F 89 20 91/62 L 97 01/19/18 23:45 01/19/18 23:45 01/19/18 23:45 01/19/18 23:45 01/19/18 23:45 Intake and Output: 01/20/18 01/20/18 06:59 18:59 Output Total 135 Balance -135 - Medications Medications: Current Medications Acetaminophen (Tylenol 325mg Tab) 650 mg PO Q6 PRN PRN Reason: Pain, Mild (1-3) Last Admin: 01/17/18 09:20 Dose: 650 mg Bupropion HCl (Wellbutrin Sr 150 Mg) 150 mg PO DAILY [facility] Last Admin: 01/19/18 10:07 Dose: 150 mg Clonazepam (Klonopin) 1 mg PO HS [facility] Last Admin: 01/19/18 21:27 Dose: 1 mg Cyclobenzaprine HCl (Flexeril) 5 mg PO DAILY PRN PRN Reason: Pain, moderate (4-7) Last Admin: 01/17/18 09:21 Dose: 5 mg Enoxaparin Sodium (Lovenox) 100 mg SC Q12 [facility] Last Admin: 01/19/18 21:27 Dose: 100 mg Ergocalciferol (Drisdol 50,000 Intl Units Cap) 1 cap PO QWK [facility] Last Admin: 01/17/18 10:00 Dose: 1 cap Hydrochlorothiazide (Hydrodiuril) 25 mg PO DAILY [facility] Last Admin: 01/19/18 10:11 Dose: Not Given Lisinopril (Zestril) 40 mg PO DAILY [facility] Last Admin: 01/19/18 10:11 Dose: Not Given Olanzapine (Zyprexa) 5 mg PO DAILY [facility] Last Admin: 01/19/18 10:07 Dose: 5 mg Oxycodone/Acetaminophen (Percocet 5/325 Mg Tab) 2 tab PO Q4H PRN PRN Reason: Pain, moderate (4-7) Stop: 01/20/18 09:57 Last Admin: 01/19/18 21:28 Dose: 2 tab Polyethylene Glycol (Miralax) 17 gm PO DAILY [facility] Last Admin: 01/19/18 12:20 Dose: 17 gm Rosuvastatin Calcium (Crestor) 10 mg PO HS [facility] Last Admin: 01/19/18 21:45 Dose: 10 mg Senna/Docusate Sodium (Senokot S 50 Mg-8.6 Mg) 1 tab PO BID [facility] Last Admin: 01/19/18 18:06 Dose: 1 tab - Labs Labs: 01/18/18 06:55 01/18/18 06:55 PT 14.2 SECONDS (9.7-12.2) H 01/10/18 07:43 INR 1.3 01/10/18 07:43 APTT 26 SECONDS (21-34) 01/10/18 07:43 - Constitutional Appears: No Acute Distress - Head Exam Head Exam: ATRAUMATIC, NORMAL INSPECTION, NORMOCEPHALIC - Eye Exam Eye Exam: EOMI, Normal appearance, PERRL Pupil Exam: NORMAL ACCOMODATION, PERRL - ENT Exam ENT Exam: Mucous Membranes Moist, Normal Exam - Neck Exam Neck Exam: Full ROM, Normal Inspection. absent: Lymphadenopathy - Respiratory Exam Respiratory Exam: NORMAL BREATHING PATTERN - Cardiovascular Exam Cardiovascular Exam: REGULAR RHYTHM, +S1, +S2. absent: Murmur - GI/Abdominal Exam GI & Abdominal Exam: Soft. absent: Distended, Firm, Guarding, Tenderness Additional comments: Mid line wound vac in place. 250cc/24hrs white fluids. [place] in place biliuos fluids 25cc/24hrs. Drain in place serobilious fluids 45/24hrs. - Exam Exam: NORMAL INSPECTION - Extremities Exam Extremities Exam: Full ROM, Normal Capillary Refill, Normal Inspection. 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 250cc/24hrs white fluids. [place] in place biliuos fluids 25cc/24hrs. Drain in place serobilious fluids 45/24hrs. Plan: -Regular diet -C/w therapeutic anticoagulation -Wound vac to suction : plan for home wound vac and VNS -C/w bowel regimen -Monitor electrolytes -Encourage ambulation Will D/w Dr. Shah
[2018-01-20] MEDS: Oxycodone/Acetaminophen 5/325 mg Tab PO PRN ×3 (08:15→21:46)
[2018-01-20] MEDS: POLYETHYLENE GLYCOL 3350 17 GM/Dose PACKET PO SCH (10:22)
[2018-01-20] MEDS: buPROPion SR 150 MG TABLET PO SCH (10:22)
[2018-01-20] MEDS: Enoxaparin 100 mg Syringe SC SCH (10:22)
[2018-01-20] MEDS: Docusate-Senna 50 mg-8.6 mg Tab PO SCH ×2 (10:22→17:24)
[2018-01-21] MEDS: Oxycodone/Acetaminophen 5/325 mg Tab PO PRN ×2 (06:13→13:19)
[2018-01-21] MEDS: buPROPion SR 150 MG TABLET PO SCH (09:57)
[2018-01-21] MEDS: Docusate-Senna 50 mg-8.6 mg Tab PO SCH ×2 (09:58→17:26)
[2018-01-21] MEDS: POLYETHYLENE GLYCOL 3350 17 GM/Dose PACKET PO SCH (09:58)
--- NOTE | 2018-01-21 15:28 | CP.PCM.DIS ---
Provider - Provider Date of Admission: 01/08/18 23:38 Attending physician: Renea Shah MD Time Spent in preparation of Discharge (in minutes): 120 Diagnosis - Discharge Diagnosis (1) Abdominal pain Status: Acute (2) Small bowel perforation Status: Acute Hospital Course - Lab Results Lab Results: Micro Results 01/08/18 21:00 Blood-Venous Blood Culture - Final NO GROWTH AFTER 5 DAYS 01/08/18 21:00 Blood-Venous Gram Stain - Final TEST NOT PERFORMED 01/08/18 19:45 Blood-Venous Blood Culture - Final NO GROWTH AFTER 5 DAYS 01/08/18 19:45 Blood-Venous Gram Stain - Final TEST NOT PERFORMED 01/08/18 21:08 Abdomen Gram Stain - Final 01/08/18 21:08 Abdomen Wound Culture - Final Klebsiella Pneumoniae Ssp Pneu Enterobacter Cloacae Ssp Cloac Most Recent Lab Values WBC 5.8 K/uL (4.8-10.8) 01/18/18 06:55 RBC 3.57 Mil/uL (3.80-5.20) L 01/18/18 06:55 Hgb 9.3 g/dL (11.0-16.0) L 01/18/18 06:55 Hct 29.0 % (34.0-47.0) L 01/18/18 06:55 MCV 81.2 fL (81.0-99.0) 01/18/18 06:55 MCH 26.2 pg (27.0-31.0) L 01/18/18 06:55 MCHC 32.2 g/dL (33.0-37.0) L 01/18/18 06:55 RDW 16.1 % (11.5-14.5) H 01/18/18 06:55 Plt Count 395 K/uL (130-400) 01/18/18 06:55 MPV 7.7 fL (7.2-11.7) 01/18/18 06:55 Neut % (Auto) 67.5 % (50.0-75.0) 01/14/18 07:25 Lymph % (Auto) 21.2 % (20.0-40.0) 01/14/18 07:25 Luce % (Auto) 7.8 % (0.0-10.0) 01/14/18 07:25 Eos % (Auto) 2.4 % (0.0-4.0) 01/14/18 07:25 Baso % (Auto) 1.1 % (0.0-2.0) 01/14/18 07:25 Neut # (Auto) 6.4 K/uL (1.8-7.0) 01/14/18 07:25 Lymph # (Auto) 2.0 K/uL (1.0-4.3) 01/14/18 07:25 Luce # (Auto) 0.7 K/uL (0.0-0.8) 01/14/18 07:25 Eos # (Auto) 0.2 K/uL (0.0-0.7) 01/14/18 07:25 Baso # (Auto) 0.1 K/uL (0.0-0.2) 01/14/18 07:25 PT 14.2 SECONDS (9.7-12.2) H 01/10/18 07:43 INR 1.3 01/10/18 07:43 APTT 26 SECONDS (21-34) 01/10/18 07:43 pO2 49 mm/Hg (30-55) 01/08/18 20:13 VBG pH 7.46 (7.32-7.43) H 01/08/18 20:13 VBG pCO2 32 mmHg (40-60) L 01/08/18 20:13 VBG HCO3 24.4 mmol/L 01/08/18 20:13 VBG Total CO2 23.8 mmol/L (22-28) 01/08/18 20:13 VBG O2 Sat (Calc) 87.4 % (40-65) H 01/08/18 20:13 VBG Base Excess -0.3 mmol/L (0.0-2.0) L 01/08/18 20:13 VBG Potassium 4.5 mmol/L (3.6-5.2) 01/08/18 20:13 Sodium 134.0 mmol/l (132-148) 01/08/18 20:13 Chloride 100.0 mmol/L (98-107) 01/08/18 20:13 Glucose 113 mg/dl (65-105) H 01/08/18 20:13 Lactate 1.6 mmol/L (0.7-2.1) 01/08/18 20:13 Sodium 143 mmol/L (132-148) 01/18/18 06:55 Potassium 4.2 mmol/L (3.6-5.2) 01/18/18 06:55 Chloride 107 mmol/L (98-107) 01/18/18 06:55 Carbon Dioxide 26 mmol/L (22-30) 01/18/18 06:55 Anion Gap 14 (10-20) 01/18/18 06:55 BUN 10 mg/dL (7-17) 01/18/18 06:55 Creatinine 0.6 mg/dL (0.7-1.2) L 01/18/18 06:55 Est GFR ( Amer) > 60 01/18/18 06:55 Est GFR (Non-Af Amer) > 60 01/18/18 06:55 Random Glucose 91 mg/dL (65-105) 01/18/18 06:55 Calcium 8.7 mg/dl (8.6-10.4) 01/18/18 06:55 Phosphorus 3.9 mg/dL (2.5-4.5) 01/18/18 06:55 Magnesium 2.2 mg/dL (1.6-2.3) 01/18/18 06:55 Total Bilirubin 0.4 mg/dL (0.2-1.3) 01/14/18 07:25 AST 28 U/L (14-36) 01/14/18 07:25 ALT 26 U/L (9-52) 01/14/18 07:25 Alkaline Phosphatase 103 U/L (38-126) 01/14/18 07:25 NT-Pro-B Natriuret Pep 31.1 pg/mL (0-900) 01/08/18 21:14 Total Protein 7.1 g/dL (6.3-8.3) 01/14/18 07:25 Albumin 3.2 g/dL (3.5-5.0) L 01/14/18 07:25 Globulin 3.9 gm/dL (2.2-3.9) 01/14/18 07:25 Albumin/Globulin Ratio 0.8 (1.0-2.1) L 01/14/18 07:25 Lipase 36 U/L (23-300) 01/08/18 20:18 Venous Blood Potassium 4.5 mmol/L (3.6-5.2) 01/08/18 20:13 Urine Color Yellow (YELLOW) 01/08/18 20:18 Urine Clarity Hazy (Clear) 01/08/18 20:18 Urine pH 6.0 (5.0-8.0) 01/08/18 20:18 Ur Specific [place] 1.016 (1.003-1.030) 01/08/18 20:18 Urine Protein Negative mg/dL (NEGATIVE) 01/08/18 20:18 Urine Glucose (UA) Normal mg/dL (Normal) 01/08/18 20:18 Urine Ketones Negative mg/dL (NEGATIVE) 01/08/18 20:18 Urine Blood 1+ (NEGATIVE) H 01/08/18 20:18 Urine Nitrate Negative (NEGATIVE) 01/08/18 20:18 Urine Bilirubin Negative (NEGATIVE) 01/08/18 20:18 Urine Urobilinogen 4.0 mg/dL (0.2-1.0) H 01/08/18 20:18 Ur Leukocyte Esterase Neg Viktor/uL (Negative) 01/08/18 20:18 Urine WBC (Auto) 3 /hpf (0-5) 01/08/18 20:18 Urine RBC (Auto) 19 /hpf (0-3) H 01/08/18 20:18 Ur Squamous Epith Cells < 1 /hpf (0-5) 01/08/18 20:18 Urine Bacteria Rare (<OCC) 01/08/18 20:18 Blood Type A NEGATIVE 01/09/18 15:30 Antibody Screen Negative 01/09/18 15:30 - Hospital Course Hospital Course: 57F w/PSH sig for incision hernia repair (12/13) consulted/admitted for the same. Pt reports that after having nilson removed, she noted drainage from wound, which has been draining ever since. Seen in ED on 01/04 with c/o of abdominal drainage and wound pain, sent home on Keflex with instructions to follow up with Dr. Shah. Was unable to keep appointment due to lack of transportation. Pt reported to ED. Admits to fevers & chills x 1 week, fatigue , malaise, weakness, new onset left lower extremity swelling, one episode of SOB , diarrhea (that started prior to taking Keflex), back pain, dizziness. Denies CP, ISAAC, constipation, dysuria, hematura, hematochezia, other complaints. In ED- febrile, Tmax 101.2. Leukocytosis of 12.3. CT ab w/findings of small bowel leak/perforation w/free oral contrast & gas collection along anterior supra-umbilical abdominal wall -11 x 4.4 cm- source is next to small bowel- colon anastomosis. Patient was admitted under Dr Renea Shah to the [facility] Surg floor for small bowel leak/perforation s/p incisional hernia repair with mesh. Patient was placed on NPO. On 01/09/18 the following surgical procedure was performed: IVC filter for the diagnosis of Left leg DVT by Dr Ian Parikh, and explantation of mesh. 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 Estimated blood loss 10 ml. Bobby Connor, Roberto drains were placed. Patient was advanced to clear liquid diets on POD #2. Patient was continued on antibiotic and controlled with pain meds. Wound culture was positive for Klebsiella pneumoniae, Enterobacter Cloacae. Patient was advanced to regular diet pod #4. Patient started experiencing midline wound drainage. Wound vac placed on 01/15. Output from wound vac was closely monitored. Wound vac was changed when leakage was present. On 01/21, roberto drain with ostomy device was removed. on 01/21 patient was clear for Discharge as per Dr Shah. The following instruction were placed for patient to follow up after discharge: Take 10mg Eliquis twice a day for 7 days total, Then take 5mg Eliquis twice a day- please set up an appointment with your primary care provider for further instructions on anticoagulation for your blood clot. Patient is Ok to shower. Please continue wound vac (wound vac instructions for nurse provider below). No heavy lifting for 4-6 weeks. No swimming, sitting in a bath or going hot tubing. Ok to resume normal diet. Physical therapy to evaluate and treat. Evaluate for home health aid Wound vac instructions for home visiting/skilled nurse were written as follows: Wound dimension [id number] in the middle of midline incision. Place white foam inside the midline wound. Change wound vac every 3 days. continuous suction at 150mmHg. If wound vac not functioning, rescue dressing can be used with 4x4 dressings, abdominal pad, saline and regular tape to cover the area. - Date & Time of H&P Date of H&P: 01/21/18 Time of H&P: 18:14 Discharge Exam - Head Exam Head Exam: ATRAUMATIC, NORMAL INSPECTION, NORMOCEPHALIC - Eye Exam Eye Exam: EOMI, Normal appearance - ENT Exam ENT Exam: Mucous Membranes Moist, Normal Exam - Neck Exam Neck exam: Full Rom - Respiratory Exam Respiratory Exam: NORMAL BREATHING PATTERN. absent: Accessory Muscle Use, Respiratory Distress - Extremities Exam Extremities exam: full ROM, normal inspection - Back Exam Back exam: FULL ROM, NORMAL INSPECTION - Neurological Exam Neurological exam: Alert, Oriented x3 Additional comments: Mid line wound vac in place - Psychiatric Exam Psychiatric exam: Normal Affect, Normal Mood - Skin Skin Exam: Dry, Intact, Normal Color, Warm Discharge Plan - Discharge Medications Prescriptions: Apixaban [Eliquis] 5 mg PO BID #60 tablet Apixaban [Eliquis] 10 mg PO BID #14 tab - Follow Up Plan Condition: GUARDED Disposition: HOME/ ROUTINE Instructions: Deep Vein Thrombosis (Blood Clots in the Legs) (DC), Apixaban, Perforation of the GI Tract (DC), Negative Pressure Wound Therapy, Acute Abdominal Pain (DC), Acute Abdominal Pain (GEN) Additional Instructions: Take 10mg Eliquis twice a day for 7 days total Then take 5mg Eliquis twice a day- please set up an appointment with your primary care provider for further instructions on anticoagulation for your blood clot Ok to shower Please continue wound vac (wound vac instructions for nurse provider below) No heavy lifting for 4-6 weeks No swimming, sitting in a bath or going hot tubing Ok to resume normal diet Physical therapy to evaluate and treat Evaluate for home health aid Wound vac instructions: Wound dimension [id number] in the middle of midline incision. Wound vac placement instruction - Place white foam inside the midline wound and place adhesive tape over. Change wound vac every 3 days. continuous suction at 50mmHg If wound vac not functioning, rescue dressing can be used with 4x4 dressings, abdominal pad, saline and regular tape to cover the area. Referrals: Renea Shah MD [Staff Provider] -
[2018-01-21 16:26] VITALS: BP 102/71; PULSE 99; TEMP 99.1; O2SAT 97
== END 2018-01-21 23:26 | disposition home health service (06) | DRG 581 ==
LOC: C.ER 18:02 → C.9E 23:38 → C.5S 01-09 07:24
PROVIDERS: ADMIT Specialist; ATTEND Specialist
PROC: 0DQ80ZZ Repair Small Intestine, Open Approach (ICD-10-PCS; 2018-01-09)
PROC: 0W9G00Z Drainage of Peritoneal Cavity with Drainage Device, Open Approach (ICD-10-PCS; 2018-01-09)
PROC: B519ZZA Fluoroscopy of Inferior Vena Cava, Guidance (ICD-10-PCS; 2018-01-09)
PROC: 0WPF0JZ Removal of Synthetic Substitute from Abdominal Wall, Open Approach (ICD-10-PCS; principal; 2018-01-09 17:00)
PROC: 06H03DZ Insertion of Intraluminal Device into Inferior Vena Cava, Percutaneous Approach (ICD-10-PCS; 2018-01-09 17:00)
PROC: 2W13X6Z Compression of Abdominal Wall using Pressure Dressing (ICD-10-PCS; 2018-01-15)
DX: T81.4XXA Infection following a procedure, initial encounter (principal); K63.1 Perforation of intestine (nontraumatic); T81.83XA Persistent postprocedural fistula, initial encounter; I82.442 Acute embolism and thrombosis of left tibial vein; K65.1 Peritoneal abscess; I82.412 Acute embolism and thrombosis of left femoral vein; I82.432 Acute embolism and thrombosis of left popliteal vein; B96.1 Klebsiella pneumoniae [K. pneumoniae] as the cause of diseases classified elsewhere; K63.2 Fistula of intestine; B96.89 Other specified bacterial agents as the cause of diseases classified elsewhere; I10 Essential (primary) hypertension; K59.00 Constipation, unspecified; E78.00 Pure hypercholesterolemia, unspecified; Z90.49 Acquired absence of other specified parts of digestive tract; Z86.010 Personal history of colon polyps